=== PATIENT | female | born 1995 | race Caucasian/White ===

== ENCOUNTER 2017-01-21 15:32 | Emergency (ER) | payer OTHER ==
[2017-01-21 15:41] VITALS: O2SAT 97
--- NOTE | 2017-01-21 16:24 | ERPHSYRPT ---
- History of Present Illness Time Seen by Provider: 01/21/17 16:19 Source: patient Exam Limitations: no limitations Patient Subjective Stated Complaint: pt here for a rash to face and arms since saturday getting worse, co itching Triage Nursing Assessment: pt has red rash to face,and arms Physician History: The patient is a 21-year-old female who is 24 weeks complaining that she has a worsening itchy rash on her face and forearms for the last 4 days. She thinks it's poison jose r. She is requested that I call her OB doctor, Dr. Johnson, in [place]. Timing/Duration: day(s) (4), gradual onset, worse Quality: itchy Severity: mild Location: face, extremities (both forearms) Possible Causes: poison jose r Modifying Factors: Improves With: scratching Associated Symptoms: blisters Allergies/Adverse Reactions: No Known Drug Allergies Allergy (Verified 01/21/17 15:42) Home Medications: Vits W-Ca,Fe,FA(<1Mg) [] 1 ea DAILY 01/21/17 [History] Hx Tetanus, Diphtheria Vaccination/Date Given: No Hx Influenza Vaccination/Date Given: Yes Hx Pneumococcal Vaccination/Date Given: No Immunizations Up to Date: Yes - Review of Systems Constitutional: No Fever, No Chills Eyes: No Symptoms Ears, Nose, & Throat: No Symptoms Respiratory: No Cough, No Dyspnea Cardiac: No Chest Pain, No Edema, No Syncope Abdominal/Gastrointestinal: No Abdominal Pain, No Nausea, No Vomiting, No Diarrhea Genitourinary Symptoms: No Dysuria Musculoskeletal: No Back Pain, No Neck Pain Skin: Rash Neurological: No Dizziness, No Focal Weakness, No Sensory Changes Psychological: No Symptoms Endocrine: No Symptoms Hematologic/Lymphatic: No Symptoms Immunological/Allergic: No Symptoms All Other Systems: Reviewed and Negative - Past Medical History Pertinent Past Medical History: No Neurological History: No Pertinent History ENT History: No Pertinent History Cardiac History: No Pertinent History Respiratory History: No Pertinent History Endocrine Medical History: No Pertinent History Musculoskeletal History: No Pertinent History GI Medical History: No Pertinent History History: No Pertinent History Psycho-Social History: No Pertinent History - Past Surgical History Past Surgical History: No Neuro Surgical History: No Pertinent History Cardiac: No Pertinent History Respiratory: No Pertinent History Gastrointestinal: No Pertinent History Genitourinary: No Pertinent History Musculoskeletal: No Pertinent History Female Surgical History: No Pertinent History Other Surgical History: ORAL SURGERY. TONSILS AND ADNOIDS - Social History Smoking Status: Never smoker Exposure to second hand smoke: Yes Drug Use: none Patient Lives Alone: No - Female History Hx Last Menstrual Period: jul 2016 Expected Date of Delivery: 05/11/17 - Nursing Vital Signs Nursing Vital Signs: Initial Vital Signs Temperature 98.3 F 01/21/17 15:36 Pulse Rate 87 01/21/17 15:36 Respiratory Rate 16 01/21/17 15:36 Blood Pressure 118/73 01/21/17 15:36 O2 Sat by Pulse Oximetry 98 01/21/17 15:36 Pain Scale Pain Intensity 0 - Physical Exam General Appearance: no apparent distress, alert Eye Exam: PERRL/EOMI, eyes nml inspection Ears, Nose, Throat Exam: normal ENT inspection, pharynx normal, moist mucous membranes Neck Exam: normal inspection, non-tender, supple, full range of motion Respiratory Exam: normal breath sounds, lungs clear, No respiratory distress Cardiovascular Exam: regular rate/rhythm, normal heart sounds Gastrointestinal/Abdomen Exam: soft, mass, No tenderness Pelvic Exam: not done Rectal Exam: not done Back Exam: normal inspection, normal range of motion, No CVA tenderness, No vertebral tenderness Extremity Exam: normal inspection, normal range of motion Neurologic Exam: alert, oriented x 3, cooperative, normal mood/affect, sensation nml, No motor deficits Skin Exam: rash (Examination of the skin on the face reveals numerous lines of rash some with small vesicles. There is also more of a confluent rash that is red on the forearms.) SpO2 Interpretation: normal SpO2: 97 Oxygen Delivery: Room Air - Progress Progress Note: 01/21/17 16:42 I spoke with her OB doctor, Dr. Johnson, at [place] and explained the possible poison jose r contact dermatitis. He recommended 40 mg of prednisone daily for 5 days. Counseled pt/family regarding: diagnosis - Departure Time of Disposition: 16:43 Departure Disposition: Home Clinical Impression: Contact dermatitis due to poison jose r Condition: Stable Critical Care Time: No Referrals: HAYDEN GRANADOS JR [Primary Care Provider] - Additional Instructions: You have poison jose r contact dermatitis. Take prednisone for 5 days as directed. I spoke with your OB doctor Dr. Johnson about the treatment plan. Follow-up as needed. Prescriptions: Prednisone 10 mg PO DAILY #10 tablet
[2017-01-21 16:58] VITALS: BP 101/55; PULSE 88
== END 2017-01-21 16:58 | disposition home or self-care (01) ==
LOC: ED 15:32
DX: L25.5 Unspecified contact dermatitis due to plants, except food (principal)
CPT/HCPCS: 99282; 99283

== ENCOUNTER 2018-06-18 18:42 | Emergency (ER) | payer MEDICAID ==
[2018-06-18 19:10] VITALS: O2SAT 96
[2018-06-18 19:15] LABS: BASOPHIL % 0.1 % (0.0-0.4); Basophil (Absolute #) 0.01 (0-0.4); Eosinophil % 0.3 % (0.00-5.0); Eosinophil (Absolute #) 0.03 (0-0.5); Granulocytes % 83.9 % (36.0-66.0); Lymphocyte (Absolute #) 1.14 (1.0-4.6); Lymphocytes % 10.1 % (24.0-44.0); Mean Cell Volume 89.7 fl (78-100); Mean Corpuscular Hemoglobin 29.9 pg (26-32); Mean Corpuscular Hgb Concent. 33.3 g/dl (32-36); Mean Platelet Volume 10.2 fl (6-9.5); Monocyte (Absolute #) 0.63 (0.0-1.3); Monocytes % 5.6 % (0.0-12.0); Platelet Count 234 K/mm3 (150-450); Red Blood Count 4.35 M/mm3 (4.1-5.4); Red Cell Distribution Width 13.7 % (11.5-14.0); White Blood Count 11.3 K/mm3 (4.0-10.5)
[2018-06-18 19:23] LABS: Appearance SLIGHTLY CLOUDY (CLEAR); Bilirubin NEGATIVE (NEGATIVE); Blood NEGATIVE Ery/ul (0-5); Epithelial Cells RARE /HPF (FEW); Glucose NEGATIVE (NEGATIVE); Ketones TRACE (NEGATIVE); Leukocyte Esterase SMALL (NEGATIVE); Mucus SLIGHT /HPF (NEGATIVE); Nitrite NEGATIVE (NEGATIVE); Protein,Urine Dip 100 (Negative); RBC 0-2 /HPF (0-2); Specific Gravity 1.024 (1.005-1.025); Urobilinogen NEGATIVE mg/dL (0-1)
[2018-06-18 19:26] LABS: ANION GAP 13.2 MEQ/L (5-15); BLOOD UREA NITROGEN 10 mg/dL (7-17); CHLORIDE 104 mmol/L (98-107); Calcium 9.4 mg/dL (8.4-10.2); Carbon Dioxide 24 mmol/L (22-30); Creatinine 1 0.63 mg/dL (0.52-1.04); Glucose 94 mg/dL (74-106); Potassium 3.9 mmol/L (3.5-5.1); SODIUM 137 mmol/L (137-145)
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
[2018-06-18] MEDS ORDERED: Sodium Chloride 0.9% 1000 ML 1,000 ML IV STA (19:32)
[2018-06-18 19:35] LABS: Amphetamine,Urine NEGATIVE (NEGATIVE); Barbiturate,Urine NEGATIVE (NEGATIVE); Benzodiazepine,Urine NEGATIVE (NEGATIVE); Cocaine,Urine NEGATIVE (NEGATIVE); Methadone,Urine NEGATIVE (NEGATIVE); Opiate,Urine NEGATIVE (NEGATIVE); PCP,Urine NEGATIVE (NEGATIVE); THC,Urine NEGATIVE (NEGATIVE)
[2018-06-18] MEDS ORDERED: Sodium Chloride 0.9% 1000 ML 1,000 ML ONE (19:42)
[2018-06-18 20:13] LABS: HCG, Quantitative (Inhouse) 103480 mIU/ml
[2018-06-18 20:16] LABS: ETHYL ALCOHOL < 10 mg/dL (0-10)
[2018-06-18 20:36] VITALS: BP 118/61; PULSE 88
[2018-06-18] MEDS ORDERED: Macrobid 100MG Capsule PO ONE (20:40)
[2018-06-18] MEDS ORDERED: Macrobid 100MG Capsule ONE (20:42)
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
== END 2018-06-18 20:59 | disposition home or self-care (01) ==
LOC: ED 18:42
DX: O26.891 Other specified pregnancy related conditions, first trimester (principal); O23.41 Unspecified infection of urinary tract in pregnancy, first trimester; S30.1XXA Contusion of abdominal wall, initial encounter; S60.221A Contusion of right hand, initial encounter; Y04.0XXA Assault by unarmed brawl or fight, initial encounter
CPT/HCPCS: 36000; 36415; 76801; 80048; 80307; 81001; 84702; 85025; 96360; 99284; A9270-GY; G0480

== ENCOUNTER 2018-11-13 09:49 | Observation (INO) | payer OTHER ==
[2018-11-13 10:20] LABS: Appearance SLIGHTLY CLOUDY (CLEAR); Bacteria FEW /HPF (NEGATIVE); Bilirubin NEGATIVE (NEGATIVE); Blood SMALL Ery/ul (0-5); Epithelial Cells RARE /HPF (FEW); Glucose NEGATIVE (NEGATIVE); Ketones NEGATIVE (NEGATIVE); Leukocyte Esterase TRACE (NEGATIVE); Mucus SLIGHT /HPF (NEGATIVE); Nitrite NEGATIVE (NEGATIVE); Protein,Urine Dip NEGATIVE (Negative); Specific Gravity 1.025 (1.005-1.025); Urobilinogen NEGATIVE mg/dL (0-1)
[2018-11-13 10:33] LABS: Amphetamine,Urine NEGATIVE (NEGATIVE); Barbiturate,Urine NEGATIVE (NEGATIVE); Benzodiazepine,Urine NEGATIVE (NEGATIVE); Cocaine,Urine NEGATIVE (NEGATIVE); Methadone,Urine NEGATIVE (NEGATIVE); Opiate,Urine NEGATIVE (NEGATIVE); PCP,Urine NEGATIVE (NEGATIVE); THC,Urine NEGATIVE (NEGATIVE)
[2018-11-13] MEDS ORDERED: Sodium Chloride 0.9% 1000 ML 1,000 ML IV STA (10:57)
[2018-11-13] MEDS ORDERED: Lactated Ringers 1,000 ML IV SCH (11:00)
[2018-11-13] MEDS ORDERED: MORPHINE SULFATE 4 MG INJ IV PRN (11:21)
[2018-11-13] MEDS ORDERED: Phenergan 25 MG INJ IV PRN (11:21)
[2018-11-13 11:23] LABS: Hematocrit 31.8 % (35-47); Hemoglobin 10.6 gm/dl (12.0-16.0); Mean Cell Volume 94.1 fl (78-100); Mean Corpuscular Hgb Concent. 33.3 g/dl (32-36); Mean Platelet Volume 9.9 fl (6-9.5); Platelet Count 214 K/mm3 (150-450); Red Blood Count 3.38 M/mm3 (4.1-5.4); Red Cell Distribution Width 12.9 % (11.5-14.0); White Blood Count 10.7 K/mm3 (4.0-10.5)
[2018-11-13 11:25] LABS: Mean Corpuscular Hemoglobin 31.3 pg (26-32)
[2018-11-13 11:40] LABS: ALBUMIN 3.5 g/dL (3.5-5.0); ALKALINE PHOSPHATASE 114 U/L (38-126); ANION GAP 12.8 MEQ/L (5-15); BLOOD UREA NITROGEN 11 mg/dL (7-17); CHLORIDE 108 mmol/L (98-107); Calcium 8.9 mg/dL (8.4-10.2); Carbon Dioxide 21 mmol/L (22-30); Creatinine 1 0.63 mg/dL (0.52-1.04); Glucose 95 mg/dL (74-106); Potassium 3.8 mmol/L (3.5-5.1); SGOT/AST 15 U/L (14-36); SGPT/ALT 11 U/L (0-35); SODIUM 138 mmol/L (137-145); Total Protein 6.7 g/dL (6.3-8.2)
[2018-11-13 11:45] LABS: BAND 1 % (0.0-2.0); Eosinophil 1 % (0.00-3.0); Lymphocytes 18 % (24-44); Neutrophils 80 % (36.0-66.0); Platelet Estimate NORMAL (NORMAL); Total Cells Counted 100; Toxic Granulation 1+
--- NOTE | 2018-11-13 12:17 | XRAY ---
Indication: Right back pain. 30 weeks . Two-dimensional renal sonogram performed. Comparison: None Both kidneys normal in reniform shape. Right kidney measures 12.3 x 5.7 x 5.5 cm and the left measures 11.9 x 4.6 x 4.8 cm. Right kidney demonstrates mild hydronephrosis presumed related to . No solid/cystic renal mass or perinephric fluid. Corticomedullary differentiation preserved. Urinary bladder minimally distended and grossly unremarkable. Normal bilateral ureteral jets. Impression: Mild right-sided hydronephrosis presumed related to . Remaining renal sonogram is negative.
[2018-11-13 18:30] VITALS: BP 109/63; PULSE 88
== END 2018-11-13 18:00 | disposition home or self-care (01) ==
LOC: OB 09:49
PROVIDERS: ADMIT Family Medicine; ATTEND Family Medicine
DX: O99.89 Other specified diseases and conditions complicating pregnancy, childbirth and the puerperium (principal); N13.30 Unspecified hydronephrosis; O21.9 Vomiting of pregnancy, unspecified; E86.0 Dehydration; Z3A.30 30 weeks gestation of pregnancy
CPT/HCPCS: 36415; 76770; 80053; 80307; 81001; 85025; 87086; G0378; J2550

== ENCOUNTER 2018-12-05 07:18 | Emergency (ER) | payer OTHER ==
[2018-12-05 07:35] VITALS: BP 124/78; O2SAT 98
--- NOTE | 2018-12-05 07:48 | ERPHSYRPT ---
- History of Present Illness Time Seen by Provider: 12/05/18 07:35 Source: patient Patient Subjective Stated Complaint: sore throat since yesterday Triage Nursing Assessment: alert and oriented with c/o sorethroat since yesterday. staes she saw green . staets she has occasionally has had a cough. Physician History: PATIENT -2,PARA-1 WHO IS 33 WEEKS GESTATION COMPLAINS OF A SORETHROAT FOR 2 DAYS. DENIES FEVER, CHILLS, DIFFICULTY BREATHING OR SWALLOWING. HAS OCCASIONAL COUGH NONPRODUCTIVE. DENIES DYSPNEA OR DIFFICULTY BREATHING. Timing/Duration: gradual onset Severity: moderate ENT Location: throat Prearrival Treatment: no prearrival treatment Modifying Factors: Improves With: nothing Associated Symptoms: denies symptoms Allergies/Adverse Reactions: No Known Drug Allergies Allergy (Verified 11/13/18 11:46) Home Medications: Vits W-Ca,Fe,FA(<1Mg) [] 1 ea PO DAILY 01/21/17 [History] Hx Tetanus, Diphtheria Vaccination/Date Given: No Hx Influenza Vaccination/Date Given: No Hx Pneumococcal Vaccination/Date Given: No - Review of Systems Constitutional: No Fever, No Chills Eyes: No Symptoms Ears, Nose, & Throat: Throat Pain Respiratory: No Symptoms, No Cough, No Dyspnea Cardiac: No Symptoms, No Chest Pain, No Edema, No Syncope Abdominal/Gastrointestinal: No Symptoms, No Abdominal Pain, No Nausea, No Vomiting, No Diarrhea Genitourinary Symptoms: No Symptoms, No Dysuria Musculoskeletal: No Symptoms, No Back Pain, No Neck Pain Skin: No Rash Neurological: No Dizziness, No Focal Weakness, No Sensory Changes Psychological: No Symptoms Endocrine: No Symptoms All Other Systems: Reviewed and Negative - Past Medical History Pertinent Past Medical History: Yes Neurological History: No Pertinent History ENT History: No Pertinent History Cardiac History: No Pertinent History Respiratory History: No Pertinent History Endocrine Medical History: No Pertinent History Musculoskeletal History: No Pertinent History GI Medical History: No Pertinent History History: No Pertinent History Psycho-Social History: No Pertinent History Other Medical History: 33weeks - Past Surgical History Past Surgical History: Yes Neuro Surgical History: No Pertinent History Cardiac: No Pertinent History Respiratory: No Pertinent History Gastrointestinal: No Pertinent History Genitourinary: No Pertinent History Musculoskeletal: No Pertinent History Female Surgical History: No Pertinent History Other Surgical History: ORAL SURGERY - Social History Smoking Status: Never smoker Exposure to second hand smoke: No Drug Use: none Patient Lives Alone: No - Female History Hx Now: Yes Gestational Age: 33 weeks - Nursing Vital Signs Nursing Vital Signs: Initial Vital Signs Temperature 98.0 F 12/05/18 07:28 Pulse Rate 72 12/05/18 07:28 Respiratory Rate 18 12/05/18 07:28 Blood Pressure 124/78 12/05/18 07:28 O2 Sat by Pulse Oximetry 98 12/05/18 07:28 Pain Scale Pain Intensity 3 - Physical Exam General Appearance: no apparent distress, alert Eye Exam: bilateral eye: normal inspection, PERRL, EOMI Ear Exam: bilateral ear: auricle normal, canal normal, TM normal Nasal Exam: normal inspection Throat Exam: normal, pharynx normal (THERE IS NO HYPERTROPHY, ERYTHEMA OR EXUDATES) Neck Exam: normal inspection, lymphadenopathy (R), lymphadenopathy (L) Cardiovascular/Respiratory Exam: chest non-tender, normal breath sounds, regular rate/rhythm Skin Exam: normal color SpO2: 98 O2 Delivery: Room Air Ordered Tests: Active Orders 24 hr Category Date Time Status CULTURE, THROAT Stat Lab 12/05/18 07:42 Ordered Lab/Rad Data: Laboratory Results 12/05/18 Range/Units 07:46 Group A Strep Antibody NEGATIVE (NEGATIVE) - Progress Progress Note: 12/05/18 08:28 STREP SCREEN NEGATIVE Counseled pt/family regarding: lab results - Departure Departure Disposition: Home Clinical Impression: ACUTE PHARYNGITIS, ACUTE BRONCHITIS Condition: Stable Critical Care Time: No Referrals: SELAM PORTER [Primary Care Provider] - Additional Instructions: TYLENOL EVERY 4 HOURS NEEDED FOR FEVER OR PAIN. ANTIBIOTIC AMOXICILLIN 875MG TWICE DAILY FOR 10 DAYS. CONSULT YOUR PRIMARY CARE PROVIDER FOR FOLLOWUP IN 1 WEEK. RETURN TO EMERGENCY ROOM FOR PERSISTENT FEVER OR PAIN. Prescriptions: Amoxicillin [Amoxil] 875 mg PO BID #20 tablet
[2018-12-05 08:36] VITALS: PULSE 70
== END 2018-12-05 08:35 | disposition home or self-care (01) ==
LOC: ED 07:18
DX: J06.0 Acute laryngopharyngitis (principal); J20.9 Acute bronchitis, unspecified; Z3A.33 33 weeks gestation of pregnancy
CPT/HCPCS: 87070; 87651; 99283

== ENCOUNTER 2019-08-11 11:08 | Emergency (ER) | payer OTHER ==
--- NOTE | 2019-08-11 11:33 | ERPHSYRPT ---
- History of Present Illness Time Seen by Provider: 08/11/19 11:16 Historian: patient Exam Limitations: no limitations Physician History: Patient is here for N/V/D. States she does not feel well overall. No falls or trauma. She feels somewhat dizzy and has abdominal pain. Location: generalized Quality: malaise Radiation: none Severity: moderate Duration: 24-48 hours Timing: gradual Modifying factors/associated signs and symptoms: none tried Allergies/Adverse Reactions: No Known Drug Allergies Allergy (Verified 08/11/19 11:32) Home Medications: No Reportable Medications [No Reported Medications] 08/11/19 [History] Hx Tetanus, Diphtheria Vaccination/Date Given: No Hx Influenza Vaccination/Date Given: No Hx Pneumococcal Vaccination/Date Given: No - Review of Systems Constitutional: No Fever, No Chills Eyes: No Symptoms Ears, Nose, & Throat: No Symptoms Respiratory: No Cough, No Dyspnea Cardiac: No Chest Pain, No Edema, No Syncope Abdominal/Gastrointestinal: Abdominal Pain, Nausea, Vomiting, No Diarrhea Genitourinary Symptoms: No Dysuria Musculoskeletal: No Back Pain, No Neck Pain Skin: No Rash Neurological: Dizziness, No Focal Weakness, No Sensory Changes Psychological: No Symptoms Endocrine: No Symptoms All Other Systems: Reviewed and Negative - Past Medical History Pertinent Past Medical History: Yes Neurological History: No Pertinent History ENT History: No Pertinent History Cardiac History: No Pertinent History Respiratory History: No Pertinent History Endocrine Medical History: No Pertinent History Musculoskeletal History: No Pertinent History GI Medical History: No Pertinent History History: No Pertinent History Psycho-Social History: No Pertinent History Other Medical History: 33weeks - Past Surgical History Past Surgical History: Yes Neuro Surgical History: No Pertinent History Cardiac: No Pertinent History Respiratory: No Pertinent History Gastrointestinal: No Pertinent History Genitourinary: No Pertinent History Musculoskeletal: No Pertinent History Female Surgical History: No Pertinent History Other Surgical History: ORAL SURGERY - Social History Smoking Status: Never smoker Exposure to second hand smoke: No Drug Use: none Patient Lives Alone: No - Nursing Vital Signs Nursing Vital Signs: Initial Vital Signs Temperature 98.1 F 08/11/19 11:21 Pulse Rate 101 H 08/11/19 11:21 Respiratory Rate 16 08/11/19 11:21 Blood Pressure 108/79 08/11/19 11:21 O2 Sat by Pulse Oximetry 99 03/03/20 11:21 Pain Scale Pain Intensity 0 - Physical Exam General Appearance: no apparent distress, alert Eye Exam: PERRL/EOMI, eyes nml inspection Ears, Nose, Throat Exam: normal ENT inspection, pharynx normal, moist mucous membranes Neck Exam: normal inspection, non-tender, supple, full range of motion Respiratory Exam: normal breath sounds, lungs clear, No respiratory distress Cardiovascular Exam: regular rate/rhythm, normal heart sounds Gastrointestinal/Abdomen Exam: soft, No tenderness, No mass Back Exam: normal inspection, normal range of motion, No CVA tenderness, No vertebral tenderness Extremity Exam: normal inspection, normal range of motion, pelvis stable Neurologic Exam: alert, oriented x 3, cooperative, normal mood/affect, nml cerebellar function, sensation nml, No motor deficits Skin Exam: normal color, warm, dry Comments: 08/11/19 11:32 Motor: There is no pronator drift of out-stretched arms. Muscle bulk and tone are normal. Strength is full bilaterally. Reflexes: Reflexes are 2+ and symmetric at the biceps, triceps, knees, and ankles. Plantar responses are flexor. Sensory: Light touch sense are intact in bilateral upper and lower extremities. There is no sign of neglect. Coordination: Rapid alternating movements are intact. There is no dysmetria on [id number] and [id number]. There are no abnormal or extraneous movements. Romberg is absent. Gait/Stance: Posture is normal. Gait is steady with normal steps, base, arm swing, and turning. Heel and toe walking are normal. Tandem gait is normal. Ordered Tests: Active Orders 24 hr Category Date Time Status EKG-ER Only STAT Care 08/11/19 11:26 Active IV Insertion STAT Care 08/11/19 11:26 Active CHEST 2 VIEWS (PA AND LAT) Stat Exams 08/11/19 11:27 Taken CBC W DIFF Stat Lab 08/11/19 11:30 Completed CMP Stat Lab 08/11/19 11:30 Completed CULTURE,URINE Stat Lab 08/11/19 11:34 Received HCG,QUALITATIVE URINE Stat Lab 08/11/19 11:34 Completed LIPASE Stat Lab 08/11/19 11:30 Completed UA W/RFX UR CULTURE Stat Lab 08/11/19 11:34 Completed Medication Summary Discontinued Medications Generic Name Dose Route Start Last Admin Trade Name Freq PRN Reason Stop Dose Admin Hydromorphone HCl 1 mg 08/11/19 11:26 08/11/19 11:50 Hydromorphone 1 Mg/Ml Ampule IV 08/11/19 11:27 1 mg STAT ONE Administration Hydromorphone HCl Confirm 08/11/19 11:39 Hydromorphone 1 Mg/Ml Ampule Administered 08/11/19 11:40 Dose 1 mg .ROUTE .STK-MED ONE Sodium Chloride 1,000 mls @ 999 mls/hr 08/11/19 11:26 08/11/19 11:51 Sodium Chloride 0.9% 1000 Ml IV 08/11/19 12:26 999 mls/hr .Q1H1M STA Administration Sodium Chloride Confirm 08/11/19 11:39 Sodium Chloride 0.9% 1000 Ml Administered 08/11/19 11:40 Dose 1,000 mls @ ud .ROUTE .STK-MED ONE Ondansetron HCl 4 mg 08/11/19 11:26 08/11/19 11:49 Zofran 4 Mg/2 Ml Vial IV 08/11/19 11:27 4 mg STAT ONE Administration Ondansetron HCl Confirm 08/11/19 11:39 Zofran 4 Mg/2 Ml Vial Administered 08/11/19 11:40 Dose 4 mg .ROUTE .STK-MED ONE Lab/Rad Data: Laboratory Result Diagrams 08/11/19 11:30 08/11/19 11:30 Laboratory Results 08/11/19 08/11/19 08/11/19 Range/Units 11:34 11:34 11:30 WBC (4.0-10.5) K/mm3 RBC (4.1-5.4) M/mm3 Hgb (12.0-16.0) gm/dl Hct (35-47) % MCV (78-100) fl MCH (26-32) pg MCHC (32-36) g/dl RDW (11.5-14.0) % Plt Count (150-450) K/mm3 MPV (7.5-11.0) fl Gran % (36.0-66.0) % Eos # (Auto) (0-0.5) Absolute Lymphs (auto) (1.0-4.6) Absolute Monos (auto) (0.0-1.3) Lymphocytes % (24.0-44.0) % Monocytes % (0.0-12.0) % Eosinophils % (0.00-5.0) % Basophils % (0.0-0.4) % Absolute Granulocytes (1.4-6.9) Basophils # (0-0.4) Sodium 143 (137-145) mmol/L Potassium 4.1 (3.5-5.1) mmol/L Chloride 109 H (98-107) mmol/L Carbon Dioxide 24 (22-30) mmol/L Anion Gap 13.7 (5-15) MEQ/L BUN 16 (7-17) mg/dL Creatinine 0.82 (0.52-1.04) mg/dL Estimated GFR > 60.0 ML/MIN Glucose 143 H (74-106) mg/dL Calcium 9.1 (8.4-10.2) mg/dL Total Bilirubin 0.90 (0.2-1.3) mg/dL AST 18 (14-36) U/L ALT 13 (0-35) U/L Alkaline Phosphatase 121 (38-126) U/L Serum Total Protein 7.7 (6.3-8.2) g/dL Albumin 4.6 (3.5-5.0) g/dL Lipase 42 (23-300) U/L Urine Color DARK YELLOW (YELLOW) Urine Appearance SLIGHTLY CLOUDY (CLEAR) Urine pH 5.0 (5-6) Ur Specific [place] 1.035 (1.005-1.025) Urine Protein 30 (Negative) Urine Ketones NEGATIVE (NEGATIVE) Urine Blood MODERATE (0-5) Randy/ul Urine Nitrite NEGATIVE (NEGATIVE) Urine Bilirubin NEGATIVE (NEGATIVE) Urine Urobilinogen NEGATIVE (0-1) mg/dL Ur Leukocyte Esterase NEGATIVE (NEGATIVE) Urine WBC (Auto) 3-5 (0-5) /HPF Urine RBC (Auto) 3-5 (0-2) /HPF U Epithel Cells (Auto) RARE (FEW) /HPF Urine Bacteria (Auto) RARE (NEGATIVE) /HPF Urine Mucus (Auto) MANY (NEGATIVE) /HPF Urine Culture Reflexed YES (NO) Urine Glucose NEGATIVE (NEGATIVE) mg/dL Urine HCG, Qual NEGATIVE (Negative) Slides for Path Review 08/11/19 Range/Units 11:30 WBC 8.7 (4.0-10.5) K/mm3 RBC 4.90 (4.1-5.4) M/mm3 Hgb 14.0 (12.0-16.0) gm/dl Hct 42.9 (35-47) % MCV 87.6 (78-100) fl MCH 28.6 (26-32) pg MCHC 32.6 (32-36) g/dl RDW 14.1 H (11.5-14.0) % Plt Count 256 (150-450) K/mm3 MPV 10.0 (7.5-11.0) fl Gran % 91.8 H (36.0-66.0) % Eos # (Auto) 0.03 (0-0.5) Absolute Lymphs (auto) 0.42 L (1.0-4.6) Absolute Monos (auto) 0.26 (0.0-1.3) Lymphocytes % 4.8 L (24.0-44.0) % Monocytes % 3.0 (0.0-12.0) % Eosinophils % 0.3 (0.00-5.0) % Basophils % 0.1 (0.0-0.4) % Absolute Granulocytes 8.02 H (1.4-6.9) Basophils # 0.01 (0-0.4) Sodium (137-145) mmol/L Potassium (3.5-5.1) mmol/L Chloride (98-107) mmol/L Carbon Dioxide (22-30) mmol/L Anion Gap (5-15) MEQ/L BUN (7-17) mg/dL Creatinine (0.52-1.04) mg/dL Estimated GFR ML/MIN Glucose (74-106) mg/dL Calcium (8.4-10.2) mg/dL Total Bilirubin (0.2-1.3) mg/dL AST (14-36) U/L ALT (0-35) U/L Alkaline Phosphatase (38-126) U/L Serum Total Protein (6.3-8.2) g/dL Albumin (3.5-5.0) g/dL Lipase (23-300) U/L Urine Color (YELLOW) Urine Appearance (CLEAR) Urine pH (5-6) Ur Specific [place] (1.005-1.025) Urine Protein (Negative) Urine Ketones (NEGATIVE) Urine Blood (0-5) Randy/ul Urine Nitrite (NEGATIVE) Urine Bilirubin (NEGATIVE) Urine Urobilinogen (0-1) mg/dL Ur Leukocyte Esterase (NEGATIVE) Urine WBC (Auto) (0-5) /HPF Urine RBC (Auto) (0-2) /HPF U Epithel Cells (Auto) (FEW) /HPF Urine Bacteria (Auto) (NEGATIVE) /HPF Urine Mucus (Auto) (NEGATIVE) /HPF Urine Culture Reflexed (NO) Urine Glucose (NEGATIVE) mg/dL Urine HCG, Qual (Negative) Slides for Path Review YES - Progress Progress: improved Progress Note: 08/11/19 11:33 differential diagnosis includes kidney stone, compression fracture, infection, UTI, triple AAA - basic labs including: CBC, lipase, CMP, UA, EKG - insert IV for fluids, pain meds, nausea control - consider imaging: CT ab/pelvis 08/11/19 12:45 Patient feels improved with medication. Labs and imaging are unremarkable. CXR shows no PNA. Plan of care was discussed with patient and patients family: all questions answered. They are agreeable to be discharged home and both verbal and printed discharge instructions were provided. The patient and patients family agreed to seek outpatient follow up as discussed. They were given strict instructions to return to the emergency department for worsening symptoms or any other emergent concerns. They verbalized understanding. Counseled pt/family regarding: drug and/or alcohol abuse, lab results, diagnosis - Departure Departure Disposition: Home Clinical Impression: Flu-like symptoms Condition: Stable Critical Care Time: No Referrals: SELAM PORTER [Primary Care Provider] - Instructions: Vomiting -- Adult, Nausea -- Adult
[2019-08-11] MEDS ORDERED: Sodium Chloride 0.9% 1000 ML 1,000 ML ONE (11:39)
[2019-08-11] MEDS ORDERED: Hydromorphone 1 mg/ml Ampule ONE (11:39)
[2019-08-11] MEDS ORDERED: Zofran 4 MG/2 ML VIAL ONE (11:39)
[2019-08-11 11:47] LABS: Absolute Neutrophil Ct (ANC) 8.02 (1.4-6.9); BASOPHIL % 0.1 % (0.0-0.4); Basophil (Absolute #) 0.01 (0-0.4); Eosinophil % 0.3 % (0.00-5.0); Eosinophil (Absolute #) 0.03 (0-0.5); Hematocrit 42.9 % (35-47); Lymphocyte (Absolute #) 0.42 (1.0-4.6); Lymphocytes % 4.8 % (24.0-44.0); Mean Cell Volume 87.6 fl (78-100); Mean Corpuscular Hemoglobin 28.6 pg (26-32); Mean Corpuscular Hgb Concent. 32.6 g/dl (32-36); Monocyte (Absolute #) 0.26 (0.0-1.3); Neutrophil % 91.8 % (36.0-66.0); Platelet Count 256 K/mm3 (150-450); Red Cell Distribution Width 14.1 % (11.5-14.0); White Blood Count 8.7 K/mm3 (4.0-10.5)
[2019-08-11] MEDS: Zofran 4 MG/2 ML VIAL IV ONE (11:49)
[2019-08-11] MEDS: Hydromorphone 1 mg/ml Ampule IV ONE (11:50)
[2019-08-11] MEDS: Sodium Chloride 0.9% 1000 ML 1,000 ML IV STA (11:51)
[2019-08-11 11:56] LABS: Appearance SLIGHTLY CLOUDY (CLEAR); Bacteria RARE /HPF (NEGATIVE); Bilirubin NEGATIVE (NEGATIVE); Blood MODERATE Ery/ul (0-5); Epithelial Cells RARE /HPF (FEW); Glucose NEGATIVE (NEGATIVE); Ketones NEGATIVE (NEGATIVE); Leukocyte Esterase NEGATIVE (NEGATIVE); Mucus MANY /HPF (NEGATIVE); Nitrite NEGATIVE (NEGATIVE); Protein,Urine Dip 30 (Negative); Specific Gravity 1.035 (1.005-1.025); Urobilinogen NEGATIVE mg/dL (0-1)
[2019-08-11 12:02] LABS: ALBUMIN 4.6 g/dL (3.5-5.0); ALKALINE PHOSPHATASE 121 U/L (38-126); ANION GAP 13.7 MEQ/L (5-15); BLOOD UREA NITROGEN 16 mg/dL (7-17); CHLORIDE 109 mmol/L (98-107); Calcium 9.1 mg/dL (8.4-10.2); Carbon Dioxide 24 mmol/L (22-30); Creatinine 1 0.82 mg/dL (0.52-1.04); Glucose 143 mg/dL (74-106); LIPASE 42 U/L (23-300); Potassium 4.1 mmol/L (3.5-5.1); SGOT/AST 18 U/L (14-36); SGPT/ALT 13 U/L (0-35); SODIUM 143 mmol/L (137-145); Total Protein 7.7 g/dL (6.3-8.2)
[2019-08-11 12:04] LABS: Slide Review 1 YES
[2019-08-11 12:29] VITALS: PULSE 74; O2SAT 98
[2019-08-11 13:21] VITALS: BP 107/67
--- NOTE | 2019-08-11 13:27 | XRAY ---
Indication: Short of breath, nausea, vomiting, diarrhea, and abdomen pain. Comparison: None PA/lateral chest demonstrates normal heart, lungs, and bony thorax.
== END 2019-08-11 13:42 | disposition home or self-care (01) ==
LOC: ED 11:08
DX: R11.2 Nausea with vomiting, unspecified (principal); R19.7 Diarrhea, unspecified; R10.9 Unspecified abdominal pain
CPT/HCPCS: 36000; 36415; 71046; 80053; 81001; 83690; 84703; 85025; 87086; 93005; 96360; 96374; 96375; 99284; J1170; J2405

== ENCOUNTER 2020-09-14 19:11 | Emergency (ER) | payer OTHER ==
[2020-09-14 19:40] LABS: Appearance SLIGHTLY CLOUDY (CLEAR); Bacteria RARE /HPF (NEGATIVE); Bilirubin NEGATIVE (NEGATIVE); Blood NEGATIVE Ery/ul (0-5); Epithelial Cells RARE /HPF (FEW); Glucose NEGATIVE (NEGATIVE); Ketones NEGATIVE (NEGATIVE); Leukocyte Esterase LARGE (NEGATIVE); Mucus SLIGHT /HPF (NEGATIVE); Nitrite NEGATIVE (NEGATIVE); Protein,Urine Dip NEGATIVE (Negative); Specific Gravity 1.019 (1.005-1.025); Urobilinogen NEGATIVE mg/dL (0-1); WBC >100 /HPF (0-5)
--- NOTE | 2020-09-14 19:51 | ERPHSYRPT ---
- History of Present Illness Time Seen by Provider: 09/14/20 19:25 Source: patient Exam Limitations: no limitations Patient Subjective Stated Complaint: pt c/o difficulty urinating, urinating small amount, mod amt green discharge slightly foul odor, low back pain and abd pain Triage Nursing Assessment: Pt c/o difficulty urinating, urinating in small amounts and frequently, had low back pain and abd pain, mod amt of green discharge vaginally with slightly foul odor. Symptoms x2 weeks, but getting worse. Pt trying to drink lots of water. LBM today and regular with those. Pt has a sexual partner who had STD several years ago and has been having unprotected sex. Physician History: 25 years old female presented in the ER with chief complaint of increased urinary frequency/dysuria/burning and mild pelvic/suprapubic cramping and low back pain for the last 2 weeks. She also noticed thick yellow-green discharge off and on foul-smelling. Does not have any self STDs in the past and is sexually active with a partner for the last 2 months who does have history of STDs in remote past. No fever chills nausea or vomiting reported. Timing/Duration: week(s) (2), intermittent, gradual onset, worse Activites at Onset: rest Quality: burning, cramping Onset Location: pelvic pain, low back pain Severity of Pain-Max: moderate Severity of Pain-Current: mild Prior abdominal problems: none Sexual intercourse history: single partner Modifying Factors: Worsens With: urinating Associated Symptoms: urinary frequency, lower back pain, vaginal discharge, No fever, No diaphoresis, No Allergies/Adverse Reactions: No Known Drug Allergies Allergy (Verified 09/14/20 19:36) Hx Tetanus, Diphtheria Vaccination/Date Given: Yes Hx Influenza Vaccination/Date Given: No Hx Pneumococcal Vaccination/Date Given: No Travel Risk - International Travel Have you traveled outside of the country in past 3 weeks: No - Coronavirus Screening Are you exhibiting any of the following symptoms?: No - Vaccine Status Have you recieved a Covid-19 vaccination: No - Review of Systems Constitutional: No Symptoms Eyes: No Symptoms Respiratory: No Symptoms Cardiac: No Symptoms Abdominal/Gastrointestinal: Abdominal Pain Genitourinary Symptoms: Dysuria, Frequency, Vaginal Discharge Musculoskeletal: No Symptoms Skin: No Symptoms Neurological: No Symptoms Psychological: No Symptoms Endocrine: No Symptoms Hematologic/Lymphatic: No Symptoms - Past Medical History Pertinent Past Medical History: Yes Neurological History: No Pertinent History ENT History: No Pertinent History Cardiac History: No Pertinent History Respiratory History: No Pertinent History Endocrine Medical History: No Pertinent History Musculoskeletal History: No Pertinent History GI Medical History: No Pertinent History History: No Pertinent History Psycho-Social History: No Pertinent History Female Reproductive Disorders: No Pertinent History Other Medical History: 33weeks - Past Surgical History Past Surgical History: Yes Neuro Surgical History: No Pertinent History Cardiac: No Pertinent History Respiratory: No Pertinent History Gastrointestinal: No Pertinent History Genitourinary: No Pertinent History Musculoskeletal: No Pertinent History Female Surgical History: No Pertinent History Other Surgical History: ORAL SURGERY - Social History Smoking Status: Never smoker Exposure to second hand smoke: Yes Drug Use: none Patient Lives Alone: No - Female History Hx Last Menstrual Period: 3 weeks ago Hx Now: No - Nursing Vital Signs Nursing Vital Signs: Initial Vital Signs Temperature 98.4 F 09/14/20 19:24 Pulse Rate 73 09/14/20 19:24 Respiratory Rate 18 09/14/20 19:24 Blood Pressure 116/68 09/14/20 19:24 O2 Sat by Pulse Oximetry 98 09/14/20 19:24 Pain Scale Pain Intensity 4 - Physical Exam General Appearance: no apparent distress Neck Exam: normal inspection, supple, full range of motion Respiratory Exam: normal breath sounds, lungs clear Cardiovascular Exam: regular rate/rhythm, normal heart sounds Gastrointestinal/Abdomen Exam: soft, normal bowel sounds, No tenderness, No distention, No guarding Pelvic Exam: not done Back Exam: normal inspection, normal range of motion, No CVA tenderness Neurologic Exam: alert, oriented x 3, cooperative Skin Exam: normal color SpO2 Interpretation: normal SpO2: 98 O2 Delivery: Room Air Ordered Tests: Active Orders 24 hr Category Date Time Status CULTURE,URINE Stat Lab 09/14/20 19:30 Received HCG,QUALITATIVE URINE Stat Lab 09/14/20 19:33 Completed UA W/RFX UR CULTURE Stat Lab 09/14/20 19:30 Completed Wet Prep Stat Lab 09/14/20 20:00 Completed Medication Summary Discontinued Medications Generic Name Dose Route Start Last Admin Trade Name Freq PRN Reason Stop Dose Admin Ceftriaxone Sodium 1,000 mg 09/14/20 20:17 09/14/20 20:21 Rocephin 1000 Mg Inj IM 09/14/20 20:18 1,000 mg STAT ONE Administration Ceftriaxone Sodium Confirm 09/14/20 20:20 Rocephin 1000 Mg Inj Administered 09/14/20 20:21 Dose 1,000 mg .ROUTE .STK-MED ONE Lidocaine HCl Confirm 09/14/20 20:23 Xylocaine 1% Hcl 20 Ml Mdv Administered 09/14/20 20:24 Dose 1 ml .ROUTE .STK-MED ONE Lab/Rad Data: Laboratory Results 09/14/20 09/14/20 09/14/20 Range/Units 20:00 19:33 19:30 Urine Color YELLOW (YELLOW) Urine Appearance SLIGHTLY CLOUDY (CLEAR) Urine pH 5.0 (5-6) Ur Specific [place] 1.019 (1.005-1.025) Urine Protein NEGATIVE (Negative) Urine Ketones NEGATIVE (NEGATIVE) Urine Blood NEGATIVE (0-5) Randy/ul Urine Nitrite NEGATIVE (NEGATIVE) Urine Bilirubin NEGATIVE (NEGATIVE) Urine Urobilinogen NEGATIVE (0-1) mg/dL Ur Leukocyte Esterase LARGE (NEGATIVE) Urine WBC (Auto) >100 (0-5) /HPF Urine RBC (Auto) 6-10 (0-2) /HPF U Epithel Cells (Auto) RARE (FEW) /HPF Urine Bacteria (Auto) RARE (NEGATIVE) /HPF Urine Mucus (Auto) SLIGHT (NEGATIVE) /HPF Urine Culture Reflexed YES (NO) Urine Glucose NEGATIVE (NEGATIVE) mg/dL Urine HCG, Qual NEGATIVE (Negative) WBC (Wet Prep) Moderate RBC (Wet Prep) Few Epi Cells (Wet Prep) Moderate Bacteria (Wet Prep) Rare Clue Cells (Wet Prep) None Seen Trichomonas (Wet Prep) None Seen Budding Yeast (Wet Prp) None Seen - Progress Progress: improved Air Movement: good Progress Note: 09/14/20 20:52 She is given Rocephin for UTI one-time dose in here along with Zithromax orally as an STD prophylaxis. GC chlamydia is pending. We will continue with Adela[facility] to go home. Discussed signs symptoms of worsening needing return to ER which she seemed understanding. Recommended safe sex practices. Blood Culture(s) Obtained: No Antibiotics given: Yes Counseled pt/family regarding: lab results, diagnosis, need for follow-up - Departure Departure Disposition: Home Clinical Impression: Vaginal discharge UTI (urinary tract infection) Qualifiers: Urinary tract infection type: site unspecified Hematuria presence: without hematuria Qualified Code(s): N39.0 - Urinary tract infection, site not specified Condition: Stable Critical Care Time: No Referrals: SELAM PORTER [Primary Care Provider] - (1-2 days for reevaluation) Instructions: Urinary Tract Infection, Adult (DC) Additional Instructions: Use safe sex practices. Take Tylenol/ibuprofen as needed. Continue with antibiotics. Follow-up with primary care for reevaluation. Follow-up for GC chlamydia results. Return to ER for worsening pain or if develop fever chills/vomiting etc. Prescriptions: Cephalexin Mh 500 mg [Keflex 500 mg] 500 mg PO TID #21 capsule
[2020-09-14] MEDS ORDERED: Rocephin 1000 MG INJ IM ONE (20:17)
[2020-09-14 20:18] LABS: Bacteria Rare; Clue Cells None Seen; Red Blood Cells Few; Trichomonas None Seen; White Blood Cells Moderate; Yeast None Seen
[2020-09-14] MEDS ORDERED: Rocephin 1000 MG INJ ONE (20:20)
[2020-09-14] MEDS ORDERED: XYLOCAINE 1% HCL 20 ML MDV ONE (20:23)
[2020-09-14] MEDS ORDERED: Zithromax 250 MG TABLET PO ONE (20:51)
[2020-09-14] MEDS ORDERED: Zithromax 250 MG TABLET ONE (21:03)
[2020-09-14 21:15] VITALS: BP 108/58; PULSE 68; O2SAT 97
[2020-09-14 21:42] LABS: CHLAMYDIA DNA DETECTED (NEGATIVE); GC DNA Probe NOT DETECTED (NEGATIVE)
== END 2020-09-14 21:18 | disposition home or self-care (01) ==
LOC: ED 19:11
DX: N89.8 Other specified noninflammatory disorders of vagina (principal); N39.0 Urinary tract infection, site not specified
CPT/HCPCS: 81001; 84703; 87086; 87210; 87491; 87591; 96372; 99284; J0696; A9270-GY

== ENCOUNTER 2020-11-05 23:16 | Emergency (ER) | payer OTHER ==
[2020-11-05] MEDS ORDERED: XYLOCAINE 1% HCL 20 ML MDV IJ ONE (23:17)
[2020-11-05 23:32] VITALS: BP 109/74; O2SAT 98
[2020-11-05] MEDS ORDERED: Rocephin 1000 MG INJ IM ONE (23:34)
[2020-11-05] MEDS ORDERED: Rocephin 1000 MG INJ ONE (23:39)
--- NOTE | 2020-11-05 23:39 | ERPHSYRPT ---
- History of Present Illness Time Seen by Provider: 11/05/20 23:38 Source: patient Exam Limitations: no limitations Patient Subjective Stated Complaint: Pt c/o vaginal discharge that is green, vaginal throbbing and vaginal itching. Pt reported hx of chlamydia and was treat ed here but has slept with same partner who was not treated for chlamydia. Triage Nursing Assessment: Patient alert and oriented. Skin color normal for race. Pt c/o vaginal itching, throbbing, burning, and green discharge. Physician History: Pt c/o vaginal discharge that is green, vaginal throbbing and vaginal itching. Pt reported hx of chlamydia and was treated here but has slept with same partner who was not treated for chlamydia.Denies fever, nausea, vomiting Timing/Duration: today Associated Symptoms: denies symptoms Allergies/Adverse Reactions: No Known Drug Allergies Allergy (Verified 11/05/20 23:32) Hx Tetanus, Diphtheria Vaccination/Date Given: Yes Hx Influenza Vaccination/Date Given: No Hx Pneumococcal Vaccination/Date Given: No Immunizations Up to Date: Yes Travel Risk - International Travel Have you traveled outside of the country in past 3 weeks: No - Coronavirus Screening Are you exhibiting any of the following symptoms?: No Close contact with a COVID-19 positive Pt in past 14-21 Days: No - Vaccine Status Have you recieved a Covid-19 vaccination: No - Review of Systems Constitutional: No Fever, No Chills Eyes: No Symptoms Ears, Nose, & Throat: No Symptoms Respiratory: No Cough, No Dyspnea Cardiac: No Chest Pain, No Edema, No Syncope Abdominal/Gastrointestinal: No Abdominal Pain, No Nausea, No Vomiting, No Diarrhea Genitourinary Symptoms: Vaginal Discharge, Vaginal Itching, No Dysuria Musculoskeletal: No Back Pain, No Neck Pain Skin: No Rash Neurological: No Dizziness, No Focal Weakness, No Sensory Changes Psychological: No Symptoms Endocrine: No Symptoms All Other Systems: Reviewed and Negative - Past Medical History Pertinent Past Medical History: Yes Neurological History: No Pertinent History ENT History: No Pertinent History Cardiac History: No Pertinent History Respiratory History: No Pertinent History Endocrine Medical History: No Pertinent History Musculoskeletal History: No Pertinent History GI Medical History: No Pertinent History History: No Pertinent History Psycho-Social History: Depression Female Reproductive Disorders: No Pertinent History Other Medical History: . - Past Surgical History Past Surgical History: Yes Neuro Surgical History: No Pertinent History Cardiac: No Pertinent History Respiratory: No Pertinent History Gastrointestinal: No Pertinent History Genitourinary: No Pertinent History Musculoskeletal: No Pertinent History Female Surgical History: No Pertinent History Other Surgical History: ORAL SURGERY - Social History Smoking Status: Never smoker Exposure to second hand smoke: Yes Drug Use: none Patient Lives Alone: No - Female History Hx Last Menstrual Period: 10/28/20 Hx Now: No - Nursing Vital Signs Nursing Vital Signs: Initial Vital Signs Temperature 97.6 F 11/05/20 23:23 Pulse Rate 67 11/05/20 23:23 Respiratory Rate 18 11/05/20 23:23 Blood Pressure 109/74 11/05/20 23:23 O2 Sat by Pulse Oximetry 98 11/05/20 23:23 Pain Scale Pain Intensity 4 - Physical Exam General Appearance: no apparent distress, alert Eye Exam: PERRL/EOMI, eyes nml inspection Ears, Nose, Throat Exam: normal ENT inspection, TMs normal, pharynx normal, moist mucous membranes Neck Exam: normal inspection, non-tender, supple, full range of motion Respiratory Exam: normal breath sounds, lungs clear, No respiratory distress Cardiovascular Exam: regular rate/rhythm, normal heart sounds, normal peripheral pulses Gastrointestinal/Abdomen Exam: soft, normal bowel sounds, No tenderness, No mass Pelvic Exam: not done Rectal Exam: deferred Back Exam: normal inspection, normal range of motion, No CVA tenderness, No vertebral tenderness Extremity Exam: normal inspection, normal range of motion, pelvis stable Neurologic Exam: alert, oriented x 3, cooperative, normal mood/affect, nml cerebellar function, nml station & gait, sensation nml, No motor deficits Skin Exam: normal color, warm, dry, No rash Lymphatic Exam: No adenopathy SpO2: 98 - Course Nursing assessment & vital signs reviewed: Yes Ordered Tests: Active Orders 24 hr Category Date Time Status CULTURE,URINE Stat Lab 11/05/20 23:43 Received UA W/RFX UR CULTURE Stat Lab 11/05/20 23:43 Completed Medication Summary Discontinued Medications Generic Name Dose Route Start Last Admin Trade Name Freq PRN Reason Stop Dose Admin Ceftriaxone Sodium 1,000 mg 11/05/20 23:34 11/05/20 23:39 Rocephin 1000 Mg Inj IM 11/05/20 23:35 1,000 mg STAT ONE Administration Ceftriaxone Sodium Confirm 11/05/20 23:39 Rocephin 1000 Mg Inj Administered 11/05/20 23:40 Dose 1,000 mg .ROUTE .STK-MED ONE Lab/Rad Data: Laboratory Results 11/05/20 Range/Units 23:43 Urine Color YELLOW (YELLOW) Urine Appearance SLIGHTLY CLOUDY (CLEAR) Urine pH 6.0 (5-6) Ur Specific [place] 1.029 (1.005-1.025) Urine Protein NEGATIVE (Negative) Urine Ketones NEGATIVE (NEGATIVE) Urine Blood NEGATIVE (0-5) Randy/ul Urine Nitrite NEGATIVE (NEGATIVE) Urine Bilirubin NEGATIVE (NEGATIVE) Urine Urobilinogen NEGATIVE (0-1) mg/dL Ur Leukocyte Esterase MODERATE (NEGATIVE) Urine WBC (Auto) 26-50 (0-5) /HPF Urine RBC (Auto) 3-5 (0-2) /HPF U Epithel Cells (Auto) FEW (FEW) /HPF Urine Bacteria (Auto) RARE (NEGATIVE) /HPF Urine Mucus (Auto) MODERATE (NEGATIVE) /HPF Urine Culture Reflexed YES (NO) Urine Glucose NEGATIVE (NEGATIVE) mg/dL - Progress Progress: improved Counseled pt/family regarding: lab results, diagnosis, need for follow-up - Departure Departure Disposition: Home Clinical Impression: Vaginal discharge UTI (urinary tract infection) Qualifiers: Urinary tract infection type: acute pyelonephritis Qualified Code(s): N10 - Acute pyelonephritis Condition: Stable Critical Care Time: No Referrals: SELAM PORTER [Primary Care Provider] - Instructions: STD Prevention, Urinary Tract Infection, Adult (DC) Additional Instructions: Discharge/Care Plan NICOLE FIGUEROA was seen on 11/06/20 in the Emergency Room. The patient was counseled regarding Diagnosis,Lab results, Imaging studies, need for follow up and when to return to the Emergency Room. Prescriptions given: Discharge Note I have spoken with the patient and/or caregivers. I have explained the patient's condition, diagnosis and treatment plan based on the information available to me at this time. I have answered the patient's and/or caregiver's questions and addressed any concerns. The patient and/or caregivers have as good understanding of the patient's diagnosis, condition and treatment plan as can be expected at this point. The vital signs have been stable. The patient's condition is stable and appropriate for discharge from the emergency department. The patient will pursue further outpatient evaluation with the primary care physician or other designated or consulting physician as outlined in the discharge instructions. The patient and/or caregivers are agreeable to this plan of care and follow-up instructions have been explained in detail. The patient and/or caregivers have received these instruction. The patient/and or caregivers are aware that any significant change in condition or worsening of symptoms should prompt an immediate return to this or the closest emergency department or call 911. NICOLE FIGUEROA was seen on 11/06/20 n the Emergency Room. At that time you were treated for an emergent condition, during your visit Laboratory, Radiology and/or other procedures may have been ordered. It is very important that you follow-up with your Primary Care Physician SELAM PORTER within the next 24-48 hours to review your Emergency Room visit and the final results of testing that was ordered. Some test results such as Urine Cultures, Blood Cultures, and other cultures if ordered will not be finalized for 24-48 hours. If you do not have a Primary Care Provider please call the medical records department at [phone] ext [phone] to obtain a copy of your results or you may sign into our patient portal to obtain these results by visiting us @ [email or web address] and completing the following steps: 1. Click on the Patient Portal link 2. Click the Patient Self Enrollment Link to complete the enrollment form and entering your 3. Once the enrollment form is completed you will receive an email with a te mporary ID and password at the email address you provided. 4. Next choose a user name and password. Your user name must be at least 4 characters long and your password must be at least 4 characters long. 5. Choose a security question from the list and provide your answer to the question. If you already have signed into the Health Portal you may access your Health Care Information 31/12 by the following steps: 1. Login to our website @ [email or web address] 2. Enter your original user name and password. FAQS The [facility] Health Portal is an online tool that contains your Lab Results, Radiology Reports, Visit History, Discharge Instructions and Health Summary Lab and Radiology Results will not be available for 72 hours on the portal. The Portal is a secure site, passwords are encryted and URLs are re-written so they cannot be copied and pasted. You and authorized family members are the only ones who can access your Portal. Also there is a timeout feature that protects your information if you leave the Portal page open. If you have technical difficulty please use the Contact Us link on the page this will allow you to submit any questions you have regarding the Portal or you may contact the Medical Record Department at [phone] ext [phone]. Prescriptions: Ciprofloxacin [Cipro 500 MG] 500 mg PO BIDAC #20 tablet
[2020-11-06 00:19] LABS: Appearance SLIGHTLY CLOUDY (CLEAR); Bacteria RARE /HPF (NEGATIVE); Bilirubin NEGATIVE (NEGATIVE); Blood NEGATIVE Ery/ul (0-5); Epithelial Cells FEW /HPF (FEW); Glucose NEGATIVE (NEGATIVE); Ketones NEGATIVE (NEGATIVE); Leukocyte Esterase MODERATE (NEGATIVE); Mucus MODERATE /HPF (NEGATIVE); Nitrite NEGATIVE (NEGATIVE); Protein,Urine Dip NEGATIVE (Negative); Specific Gravity 1.029 (1.005-1.025); Urobilinogen NEGATIVE mg/dL (0-1); WBC 26-50 /HPF (0-5)
[2020-11-06] MEDS ORDERED: Cipro 500 MG PO STA (00:25)
[2020-11-06] MEDS ORDERED: Cipro 500 MG ONE (00:33)
[2020-11-06 00:37] VITALS: PULSE 65
== END 2020-11-06 00:49 | disposition home or self-care (01) ==
LOC: ED 23:16
DX: N89.8 Other specified noninflammatory disorders of vagina (principal)
CPT/HCPCS: 81001; 87086; 96372; 99284; J0696; A9270-GY

== ENCOUNTER 2020-11-18 17:14 | Emergency (ER) | payer OTHER ==
[2020-11-18] MEDS ORDERED: Sodium Chloride 0.9% 1000 ML 1,000 ML IV STA (18:41)
[2020-11-18] MEDS ORDERED: Sodium Chloride 0.9% 1000 ML 1,000 ML ONE (18:45)
--- NOTE | 2020-11-18 18:48 | ERPHSYRPT ---
- History of Present Illness Time Seen by Provider: 11/18/20 17:19 Source: patient Exam Limitations: no limitations Patient Subjective Stated Complaint: pt states she's been out shopping today and was on her way home and began feeling dizzy, nauseous, and just "unwell" Triage Nursing Assessment: pt alert and oriented. pt ambulatory with a steady gait. pt PERRLA. pt states pain to her lower abdomen. pt was here a few days ago and was diagnosed with a UTI and tested for chlamydia and given antibiotic shot. pt is still taking oral abx. skin is pwd. Physician History: 25 years old female presented in the ER with chief complaint of sudden onset of feeling dizzy lightheaded and not feeling well almost 3 hours ago after she got done with shopping earlier at [employer]. Patient reports she has been having scratchiness in her throat, congestion and heaviness in the ears with mild headache and body aches. She is also complaining of some suprapubic discomfort and change in the color of urine making a concern for getting another UTI. She denies vomiting but does have nausea without any upper abdominal pain. No fever or chills reported. Gets have viral illness going on for almost 1 week and she is concerned might have got as well. Timing/Duration: hour(s) (3), gradual onset, improved Cough Quality/Degree: no cough Possible Cause: illness exposure Associated Symptoms: earache, headache, lightheadedness, muscle aches, nasal congestion, nasal drainage, sinus infection, sore throat, No shortness of breath Allergies/Adverse Reactions: No Known Drug Allergies Allergy (Verified 11/18/20 17:37) Hx Tetanus, Diphtheria Vaccination/Date Given: Yes Hx Influenza Vaccination/Date Given: No Hx Pneumococcal Vaccination/Date Given: No Travel Risk - International Travel Have you traveled outside of the country in past 3 weeks: No - Coronavirus Screening Are you exhibiting any of the following symptoms?: No Close contact with a COVID-19 positive Pt in past 14-21 Days: No - Vaccine Status Have you recieved a Covid-19 vaccination: No - Review of Systems Constitutional: Fatigue, Weakness Eyes: No Symptoms Ears, Nose, & Throat: Nose Congestion, Nose Discharge, Sinus Drainage, Throat Pain Respiratory: No Symptoms Cardiac: No Symptoms Abdominal/Gastrointestinal: Nausea Genitourinary Symptoms: Dysuria Musculoskeletal: Myalgias Skin: No Symptoms Neurological: No Symptoms Psychological: No Symptoms Endocrine: No Symptoms Hematologic/Lymphatic: No Symptoms Immunological/Allergic: No Symptoms - Past Medical History Pertinent Past Medical History: Yes Neurological History: No Pertinent History ENT History: No Pertinent History Cardiac History: No Pertinent History Respiratory History: No Pertinent History Endocrine Medical History: No Pertinent History Musculoskeletal History: No Pertinent History GI Medical History: No Pertinent History History: No Pertinent History Psycho-Social History: Depression Female Reproductive Disorders: No Pertinent History Other Medical History: . - Past Surgical History Past Surgical History: Yes Neuro Surgical History: No Pertinent History Cardiac: No Pertinent History Respiratory: No Pertinent History Gastrointestinal: No Pertinent History Genitourinary: No Pertinent History Musculoskeletal: No Pertinent History Female Surgical History: No Pertinent History Other Surgical History: ORAL SURGERY - Social History Smoking Status: Never smoker Exposure to second hand smoke: Yes Drug Use: none Patient Lives Alone: No - Female History Hx Last Menstrual Period: 10-31-20 Hx Now: No - Nursing Vital Signs Nursing Vital Signs: Initial Vital Signs Temperature 98.8 F 11/18/20 17:28 Pulse Rate 99 H 11/18/20 17:28 Respiratory Rate 18 11/18/20 17:28 Blood Pressure 107/72 11/18/20 17:28 O2 Sat by Pulse Oximetry 98 11/18/20 17:28 Pain Scale Pain Intensity 3 - Physical Exam General Appearance: no apparent distress, alert Eye Exam: PERRL/EOMI Ears, Nose, Throat Exam: normal ENT inspection, moist mucous membranes, pharyngeal erythema, other (Postnasal drip) Neck Exam: normal inspection, non-tender, supple, full range of motion Respiratory Exam: normal breath sounds, lungs clear Cardiovascular Exam: regular rate/rhythm, normal heart sounds Gastrointestinal/Abdomen Exam: soft, normal bowel sounds, No tenderness Back Exam: normal inspection, normal range of motion Extremity Exam: normal inspection, normal range of motion Neurologic Exam: alert, oriented x 3, cooperative Skin Exam: normal color SpO2 Interpretation: normal SpO2: 100 O2 Delivery: Room Air - Course EKG Interpreted by Me: RATE ([id number]), Sinus Rhythm, NORMAL AXIS, NORMAL INTERVALS, NORMAL QRS Ordered Tests: Active Orders 24 hr Category Date Time Status IV Insertion STAT Care 11/18/20 18:41 Completed CBC W DIFF Stat Lab 11/18/20 18:49 Completed CMP Stat Lab 11/18/20 18:49 Completed HCG,QUALITATIVE URINE Stat Lab 11/18/20 18:44 Completed INFLUENZA A+B JAIRO Stat Lab 11/18/20 19:00 Completed [place] Screen Stat Lab 11/18/20 18:49 Completed UA W/RFX UR CULTURE Stat Lab 11/18/20 18:44 Completed Medication Summary Discontinued Medications Generic Name Dose Route Start Last Admin Trade Name Mary PRN Reason Stop Dose Admin Azithromycin 1,000 mg 11/18/20 19:51 11/18/20 19:59 Zithromax 250 Mg Tablet PO 11/18/20 19:52 1,000 mg STAT ONE Administration Azithromycin Confirm 11/18/20 19:54 Zithromax 250 Mg Tablet Administered 11/18/20 19:55 Dose 1,000 mg .ROUTE .STK-MED ONE Sodium Chloride 1,000 mls @ 999 mls/hr 11/18/20 18:41 11/18/20 19:50 Sodium Chloride 0.9% 1000 Ml IV 11/18/20 19:41 Infused .Q1H1M STA Infusion Sodium Chloride Confirm 11/18/20 18:45 Sodium Chloride 0.9% 1000 Ml Administered 11/18/20 18:46 Dose 1,000 mls @ ud .ROUTE .STK-MED ONE Trimethoprim/Sulfamethoxazole 1 tab 11/18/20 19:18 11/18/20 19:24 Bactrim Ds Tablet PO 11/18/20 19:19 1 tab STAT STA Administration Trimethoprim/Sulfamethoxazole Confirm 11/18/20 19:23 Bactrim Ds Tablet Administered 11/18/20 19:24 Dose 1 tab PO .STK-MED ONE Lab/Rad Data: Laboratory Result Diagrams 11/18/20 18:49 11/18/20 18:49 Laboratory Results 11/18/20 11/18/20 11/18/20 Range/Units 19:00 19:00 18:49 WBC (4.0-10.5) K/mm3 RBC (4.1-5.4) M/mm3 Hgb (12.0-16.0) gm/dl Hct (35-47) % MCV (78-100) fl MCH (26-32) pg MCHC (32-36) g/dl RDW (11.5-14.0) % Plt Count (150-450) K/mm3 MPV (7.5-11.0) fl Gran % (36.0-66.0) % Eos # (Auto) (0-0.5) Absolute Lymphs (auto) (1.0-4.6) Absolute Monos (auto) (0.0-1.3) Lymphocytes % (24.0-44.0) % Monocytes % (0.0-12.0) % Eosinophils % (0.00-5.0) % Basophils % (0.0-0.4) % Absolute Granulocytes (1.4-6.9) Basophils # (0-0.4) Sodium (137-145) mmol/L Potassium (3.5-5.1) mmol/L Chloride (98-107) mmol/L Carbon Dioxide (22-30) mmol/L Anion Gap (5-15) MEQ/L BUN (7-17) mg/dL Creatinine (0.52-1.04) mg/dL Estimated GFR ML/MIN Glucose (74-106) mg/dL Calcium (8.4-10.2) mg/dL Total Bilirubin (0.2-1.3) mg/dL AST (14-36) U/L ALT (0-35) U/L Alkaline Phosphatase (38-126) U/L Serum Total Protein (6.3-8.2) g/dL Albumin (3.5-5.0) g/dL Urine Color (YELLOW) Urine Appearance (CLEAR) Urine pH (5-6) Ur Specific [place] (1.005-1.025) Urine Protein (Negative) Urine Ketones (NEGATIVE) Urine Blood (0-5) Randy/ul Urine Nitrite (NEGATIVE) Urine Bilirubin (NEGATIVE) Urine Urobilinogen (0-1) mg/dL Ur Leukocyte Esterase (NEGATIVE) Urine WBC (Auto) (0-5) /HPF Urine RBC (Auto) (0-2) /HPF U Epithel Cells (Auto) (FEW) /HPF Urine Bacteria (Auto) (NEGATIVE) /HPF Urine Mucus (Auto) (NEGATIVE) /HPF Urine Culture Reflexed (NO) Urine Glucose (NEGATIVE) mg/dL Urine HCG, Qual (Negative) Monoscreen NEGATIVE (Negative) Influenza Type A Ag NEGATIVE (NEGATIVE) Influenza Type B Ag NEGATIVE (NEGATIVE) Group A Strep Antibody NOT DETECTED (NEGATIVE) 11/18/20 11/18/20 11/18/20 Range/Units 18:49 18:49 18:44 WBC 5.3 (4.0-10.5) K/mm3 RBC 4.39 (4.1-5.4) M/mm3 Hgb 12.9 (12.0-16.0) gm/dl Hct 40.0 (35-47) % MCV 91.1 (78-100) fl MCH 29.4 (26-32) pg MCHC 32.3 (32-36) g/dl RDW 13.0 (11.5-14.0) % Plt Count 237 (150-450) K/mm3 MPV 10.3 (7.5-11.0) fl Gran % 81.3 H (36.0-66.0) % Eos # (Auto) 0.05 (0-0.5) Absolute Lymphs (auto) 0.63 L (1.0-4.6) Absolute Monos (auto) 0.29 (0.0-1.3) Lymphocytes % 12.0 L (24.0-44.0) % Monocytes % 5.5 (0.0-12.0) % Eosinophils % 1.0 (0.00-5.0) % Basophils % 0.2 (0.0-0.4) % Absolute Granulocytes 4.27 (1.4-6.9) Basophils # 0.01 (0-0.4) Sodium 137 (137-145) mmol/L Potassium 4.1 (3.5-5.1) mmol/L Chloride 104 (98-107) mmol/L Carbon Dioxide 26 (22-30) mmol/L Anion Gap 11.3 (5-15) MEQ/L BUN 13 (7-17) mg/dL Creatinine 0.78 (0.52-1.04) mg/dL Estimated GFR > 60.0 ML/MIN Glucose 90 (74-106) mg/dL Calcium 9.0 (8.4-10.2) mg/dL Total Bilirubin 0.30 (0.2-1.3) mg/dL AST 19 (14-36) U/L ALT 11 (0-35) U/L Alkaline Phosphatase 80 (38-126) U/L Serum Total Protein 6.7 (6.3-8.2) g/dL Albumin 4.0 (3.5-5.0) g/dL Urine Color (YELLOW) Urine Appearance (CLEAR) Urine pH (5-6) Ur Specific [place] (1.005-1.025) Urine Protein (Negative) Urine Ketones (NEGATIVE) Urine Blood (0-5) Randy/ul Urine Nitrite (NEGATIVE) Urine Bilirubin (NEGATIVE) Urine Urobilinogen (0-1) mg/dL Ur Leukocyte Esterase (NEGATIVE) Urine WBC (Auto) (0-5) /HPF Urine RBC (Auto) (0-2) /HPF U Epithel Cells (Auto) (FEW) /HPF Urine Bacteria (Auto) (NEGATIVE) /HPF Urine Mucus (Auto) (NEGATIVE) /HPF Urine Culture Reflexed (NO) Urine Glucose (NEGATIVE) mg/dL Urine HCG, Qual NEGATIVE (Negative) Monoscreen (Negative) Influenza Type A Ag (NEGATIVE) Influenza Type B Ag (NEGATIVE) Group A Strep Antibody (NEGATIVE) 11/18/20 Range/Units 18:44 WBC (4.0-10.5) K/mm3 RBC (4.1-5.4) M/mm3 Hgb (12.0-16.0) gm/dl Hct (35-47) % MCV (78-100) fl MCH (26-32) pg MCHC (32-36) g/dl RDW (11.5-14.0) % Plt Count (150-450) K/mm3 MPV (7.5-11.0) fl Gran % (36.0-66.0) % Eos # (Auto) (0-0.5) Absolute Lymphs (auto) (1.0-4.6) Absolute Monos (auto) (0.0-1.3) Lymphocytes % (24.0-44.0) % Monocytes % (0.0-12.0) % Eosinophils % (0.00-5.0) % Basophils % (0.0-0.4) % Absolute Granulocytes (1.4-6.9) Basophils # (0-0.4) Sodium (137-145) mmol/L Potassium (3.5-5.1) mmol/L Chloride (98-107) mmol/L Carbon Dioxide (22-30) mmol/L Anion Gap (5-15) MEQ/L BUN (7-17) mg/dL Creatinine (0.52-1.04) mg/dL Estimated GFR ML/MIN Glucose (74-106) mg/dL Calcium (8.4-10.2) mg/dL Total Bilirubin (0.2-1.3) mg/dL AST (14-36) U/L ALT (0-35) U/L Alkaline Phosphatase (38-126) U/L Serum Total Protein (6.3-8.2) g/dL Albumin (3.5-5.0) g/dL Urine Color YELLOW (YELLOW) Urine Appearance SLIGHTLY CLOUDY (CLEAR) Urine pH 7.0 (5-6) Ur Specific [place] 1.026 (1.005-1.025) Urine Protein NEGATIVE (Negative) Urine Ketones NEGATIVE (NEGATIVE) Urine Blood NEGATIVE (0-5) Randy/ul Urine Nitrite NEGATIVE (NEGATIVE) Urine Bilirubin NEGATIVE (NEGATIVE) Urine Urobilinogen NEGATIVE (0-1) mg/dL Ur Leukocyte Esterase MODERATE (NEGATIVE) Urine WBC (Auto) 3-5 (0-5) /HPF Urine RBC (Auto) NONE (0-2) /HPF U Epithel Cells (Auto) RARE (FEW) /HPF Urine Bacteria (Auto) NONE (NEGATIVE) /HPF Urine Mucus (Auto) SLIGHT (NEGATIVE) /HPF Urine Culture Reflexed NO (NO) Urine Glucose NEGATIVE (NEGATIVE) mg/dL Urine HCG, Qual (Negative) Monoscreen (Negative) Influenza Type A Ag (NEGATIVE) Influenza Type B Ag (NEGATIVE) Group A Strep Antibody (NEGATIVE) - Progress Progress: improved Air Movement: good Progress Note: 11/18/20 19:52 She is given fluid bolus, reevaluation feeling better. Baseline work-up is obtained including strep flu mono which is negative. I believe she has some viral etiology symptoms, recommended supportive care. Later on patient reported that she does have some yellowish-green vaginal discharge which was there when she was diagnosed with chlamydia as her partner did not get treatment and gave it back to her. She is given Zithromax in here and will recheck her for GC chlamydia again. She does have some element of UTI and started on Bactrim. Safe sex counseling done. Outpatient follow-up recommended Blood Culture(s) Obtained: No Antibiotics given: Yes Counseled pt/family regarding: lab results, diagnosis, need for follow-up - Departure Departure Disposition: Home Clinical Impression: Viral syndrome, Vaginal discharge UTI (urinary tract infection) Qualifiers: Urinary tract infection type: site unspecified Hematuria presence: without hematuria Qualified Code(s): N39.0 - Urinary tract infection, site not specified Condition: Stable Critical Care Time: No Referrals: SELAM PORTER [Primary Care Provider] - Follow Up with PCP/3 days Instructions: Urinary Tract Infections in Adults, Chlamydia and Gonorrhea, Phyllisa caitlynia (DC) Additional Instructions: Drink plenty of fluids. Take Tylenol as needed for body aches. Use barrier method for contraception. Get your partner treated. Abstinence from sex until your symptoms are resolved. Follow-up with primary care for reevaluation. Return to ER for worsening. Prescriptions: Smz/Tmp Ds Tablet [Bactrim Ds Tablet] 1 udtab PO BID #14 tablet
[2020-11-18 18:54] LABS: Absolute Neutrophil Ct (ANC) 4.27 (1.4-6.9); BASOPHIL % 0.2 % (0.0-0.4); Basophil (Absolute #) 0.01 (0-0.4); Eosinophil (Absolute #) 0.05 (0-0.5); Hemoglobin 12.9 gm/dl (12.0-16.0); Lymphocyte (Absolute #) 0.63 (1.0-4.6); Mean Cell Volume 91.1 fl (78-100); Mean Corpuscular Hemoglobin 29.4 pg (26-32); Mean Corpuscular Hgb Concent. 32.3 g/dl (32-36); Mean Platelet Volume 10.3 fl (7.5-11.0); Monocyte (Absolute #) 0.29 (0.0-1.3); Monocytes % 5.5 % (0.0-12.0); Neutrophil % 81.3 % (36.0-66.0); Platelet Count 237 K/mm3 (150-450); Red Blood Count 4.39 M/mm3 (4.1-5.4); White Blood Count 5.3 K/mm3 (4.0-10.5)
[2020-11-18 19:01] LABS: ALKALINE PHOSPHATASE 80 U/L (38-126); ANION GAP 11.3 MEQ/L (5-15); BLOOD UREA NITROGEN 13 mg/dL (7-17); CHLORIDE 104 mmol/L (98-107); Carbon Dioxide 26 mmol/L (22-30); Creatinine 1 0.78 mg/dL (0.52-1.04); EST GLOMERULAR FILTRATION RATE > 60.0 ML/MIN; Glucose 90 mg/dL (74-106); Potassium 4.1 mmol/L (3.5-5.1); SGOT/AST 19 U/L (14-36); SGPT/ALT 11 U/L (0-35); SODIUM 137 mmol/L (137-145); Total Protein 6.7 g/dL (6.3-8.2)
[2020-11-18 19:09] LABS: Appearance SLIGHTLY CLOUDY (CLEAR); Bilirubin NEGATIVE (NEGATIVE); Blood NEGATIVE Ery/ul (0-5); Epithelial Cells RARE /HPF (FEW); Glucose NEGATIVE (NEGATIVE); Ketones NEGATIVE (NEGATIVE); Leukocyte Esterase MODERATE (NEGATIVE); Mucus SLIGHT /HPF (NEGATIVE); Nitrite NEGATIVE (NEGATIVE); Protein,Urine Dip NEGATIVE (Negative); Specific Gravity 1.026 (1.005-1.025); Urobilinogen NEGATIVE mg/dL (0-1)
[2020-11-18] MEDS ORDERED: BACTRIM DS TABLET PO STA (19:18)
[2020-11-18] MEDS ORDERED: BACTRIM DS TABLET PO ONE (19:23)
[2020-11-18 19:45] LABS: INFLUENZA A NEGATIVE (NEGATIVE); INFLUENZA B NEGATIVE (NEGATIVE)
[2020-11-18] MEDS ORDERED: Zithromax 250 MG TABLET PO ONE (19:51)
[2020-11-18] MEDS ORDERED: Zithromax 250 MG TABLET ONE (19:54)
[2020-11-18 19:57] VITALS: O2SAT 100
[2020-11-18 20:09] VITALS: BP 105/78; PULSE 70
[2020-11-18 21:17] LABS: CHLAMYDIA DNA DETECTED (NEGATIVE); GC DNA Probe NOT DETECTED (NEGATIVE)
== END 2020-11-18 20:09 | disposition home or self-care (01) ==
LOC: ED 17:14
DX: N39.0 Urinary tract infection, site not specified (principal)
CPT/HCPCS: 36000; 36415; 80053; 81001; 84703; 85025; 86308; 87400; 87491; 87591; 87651; 96360; 99284; A9270-GY

== ENCOUNTER 2020-12-14 19:45 | Emergency (ER) | payer OTHER ==
[2020-12-14 23:45] LABS: Appearance SLIGHTLY CLOUDY (CLEAR); Bilirubin NEGATIVE (NEGATIVE); Blood NEGATIVE Ery/ul (0-5); Epithelial Cells RARE /HPF (FEW); Glucose NEGATIVE (NEGATIVE); Ketones NEGATIVE (NEGATIVE); Leukocyte Esterase LARGE (NEGATIVE); Mucus SLIGHT /HPF (NEGATIVE); Nitrite NEGATIVE (NEGATIVE); Protein,Urine Dip NEGATIVE (Negative); Specific Gravity 1.026 (1.005-1.025); Urobilinogen NEGATIVE mg/dL (0-1); WBC 26-50 /HPF (0-5)
--- NOTE | 2020-12-15 00:01 | ERPHSYRPT ---
- History of Present Illness Time Seen by Provider: 12/14/20 20:30 Source: patient Exam Limitations: no limitations Patient Subjective Stated Complaint: The patient states that she woke up with a sore throat yesterday 12/15/20 with a sore throat, but this morning woke up and could hardly swallow and had puss pockets in the back of her throat. Triage Nursing Assessment: The patient is alert and oriented, ambulatory, complaining of a sore throat. The patient's throat is red with white patches. The patient is concerned that she could be and was concerned about taking a medicine that could harm the baby. The patient also states that she is unable to return to work unless she is medically cleared. Physician History: Patient is a 25-year-old female presents to our ED for evaluation of a sore throat. Patient states she has pain when she swallows. She is observed pus at bilateral tonsils. Patient believes she may need antibiotics. Patient also requesting a test as she wants to be sure she is not before receiving antibiotics. No fever. No nausea or vomiting. No headache. No neck pain. No photophobia. No nuchal rigidity. No chest pain. Symptoms are mild to moderate in intensity. Swallowing reproduces symptoms. Patient able to tolerate oral secretions well no trismus. Patient otherwise healthy. She voices no other complaints concerns at this time. Timing/Duration: yesterday Severity: moderate Modifying Factors: Improves With: nothing Associated Symptoms: denies symptoms Allergies/Adverse Reactions: No Known Drug Allergies Allergy (Verified 11/18/20 17:37) Hx Tetanus, Diphtheria Vaccination/Date Given: Yes Hx Influenza Vaccination/Date Given: Yes (fall 2019) Hx Pneumococcal Vaccination/Date Given: No Immunizations Up to Date: Yes Travel Risk - International Travel Have you traveled outside of the country in past 3 weeks: No - Coronavirus Screening Are you exhibiting any of the following symptoms?: No Close contact with a COVID-19 positive Pt in past 14-21 Days: No - Vaccine Status Have you recieved a Covid-19 vaccination: No - Review of Systems Constitutional: No Symptoms, No Fever, No Chills Eyes: No Symptoms Ears, Nose, & Throat: No Symptoms Respiratory: No Symptoms, No Cough, No Dyspnea Cardiac: No Symptoms, No Chest Pain, No Edema, No Syncope Abdominal/Gastrointestinal: No Symptoms, No Abdominal Pain, No Nausea, No Vomiting, No Diarrhea Genitourinary Symptoms: No Symptoms, No Dysuria Musculoskeletal: No Symptoms, No Back Pain, No Neck Pain Skin: No Symptoms, No Rash Neurological: No Symptoms, No Dizziness, No Focal Weakness, No Sensory Changes Psychological: No Symptoms Endocrine: No Symptoms Hematologic/Lymphatic: No Symptoms Immunological/Allergic: No Symptoms All Other Systems: Reviewed and Negative - Past Medical History Pertinent Past Medical History: Yes Neurological History: No Pertinent History ENT History: No Pertinent History Cardiac History: No Pertinent History Respiratory History: No Pertinent History Endocrine Medical History: No Pertinent History Musculoskeletal History: No Pertinent History GI Medical History: No Pertinent History History: No Pertinent History Psycho-Social History: Depression Female Reproductive Disorders: No Pertinent History Other Medical History: . - Past Surgical History Past Surgical History: Yes Neuro Surgical History: No Pertinent History Cardiac: No Pertinent History Respiratory: No Pertinent History Gastrointestinal: No Pertinent History Genitourinary: No Pertinent History Musculoskeletal: No Pertinent History Female Surgical History: No Pertinent History Other Surgical History: ORAL SURGERY - Social History Smoking Status: Never smoker Exposure to second hand smoke: Yes Drug Use: none Patient Lives Alone: No - Female History Hx Last Menstrual Period: 11/22/20 Hx Now: (possible) - Nursing Vital Signs Nursing Vital Signs: Initial Vital Signs Temperature 99.5 F 12/14/20 20:15 Pulse Rate 91 H 12/14/20 20:15 Respiratory Rate 16 12/14/20 20:15 Blood Pressure 124/67 12/14/20 20:15 O2 Sat by Pulse Oximetry 97 12/14/20 20:15 Pain Scale Pain Intensity 0 - Physical Exam General Appearance: no apparent distress, alert Eye Exam: PERRL/EOMI, eyes nml inspection Ears, Nose, Throat Exam: normal ENT inspection, TMs normal, pharynx normal, moist mucous membranes, other (Bilateral tonsillar exudate. Uvula midline. 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 Mildly erythematous oropharynx. No sublingual masses.) Neck Exam: normal inspection, non-tender, supple, full range of motion, other (Anterior cervical lymphadenopathy.) Respiratory Exam: normal breath sounds, lungs clear, No respiratory distress Cardiovascular Exam: regular rate/rhythm, normal heart sounds, normal peripheral pulses Gastrointestinal/Abdomen Exam: soft, normal bowel sounds, No tenderness, No mass Back Exam: normal inspection, normal range of motion, No CVA tenderness, No vertebral tenderness Extremity Exam: normal inspection, normal range of motion, pelvis stable Neurologic Exam: alert, oriented x 3, cooperative, normal mood/affect, nml cerebellar function, nml station & gait, sensation nml, No motor deficits Skin Exam: normal color, warm, dry, No rash Lymphatic Exam: No adenopathy SpO2: 97 Ordered Tests: Active Orders 24 hr Category Date Time Status HCG,QUALITATIVE URINE Stat Lab 12/14/20 23:11 Completed UA W/RFX UR CULTURE Stat Lab 12/14/20 23:11 Completed Medication Summary Discontinued Medications Generic Name Dose Route Start Last Admin Trade Name Freq PRN Reason Stop Dose Admin Amoxicillin/Clavulanate Potassium 875 mg 12/15/20 00:08 Augmentin 875-125 Tablet PO 12/15/20 00:09 ONCE STA Lab/Rad Data: Laboratory Results 12/14/20 12/14/20 12/14/20 Range/Units 23:25 23:11 23:11 Urine Color YELLOW (YELLOW) Urine Appearance SLIGHTLY CLOUDY (CLEAR) Urine pH 5.0 (5-6) Ur Specific [place] 1.026 (1.005-1.025) Urine Protein NEGATIVE (Negative) Urine Ketones NEGATIVE (NEGATIVE) Urine Blood NEGATIVE (0-5) Randy/ul Urine Nitrite NEGATIVE (NEGATIVE) Urine Bilirubin NEGATIVE (NEGATIVE) Urine Urobilinogen NEGATIVE (0-1) mg/dL Ur Leukocyte Esterase LARGE (NEGATIVE) Urine WBC (Auto) 26-50 (0-5) /HPF Urine RBC (Auto) NONE (0-2) /HPF U Epithel Cells (Auto) RARE (FEW) /HPF Urine Bacteria (Auto) NONE (NEGATIVE) /HPF Urine Mucus (Auto) SLIGHT (NEGATIVE) /HPF Urine Culture Reflexed NO (NO) Urine Glucose NEGATIVE (NEGATIVE) mg/dL Urine HCG, Qual NEGATIVE (Negative) Group A Strep Antibody NOT DETECTED (NEGATIVE) - Departure Departure Disposition: Home Clinical Impression: UTI (urinary tract infection), Pharyngitis, Tonsillitis Condition: Stable Critical Care Time: No Referrals: SELAM PORTER [Primary Care Provider] - Additional Instructions: Discharge/Care Plan NICOLE FIGUEROA was seen on 12/15/20 in the Emergency Room. The patient was counseled regarding Diagnosis,Lab results, Imaging studies, need for follow up and when to return to the Emergency Room. Prescriptions given: Discharge Note I have spoken with the patient and/or caregivers. I have explained the patient's condition, diagnosis and treatment plan based on the information available to me at this time. I have answered the patient's and/or caregiver's questions and addressed any concerns. The patient and/or caregivers have as good understanding of the patient's diagnosis, condition and treatment plan as can be expected at this point. The vital signs have been stable. The patient's condition is stable and appropriate for discharge from the emergency department. The patient will pursue further outpatient evaluation with the primary care physician or other designated or consulting physician as outlined in the discharge instructions. The patient and/or caregivers are agreeable to this plan of care and follow-up instructions have been explained in detail. The patient and/or caregivers have received these instruction. The patient/and or caregivers are aware that any significant change in condition or worsening of symptoms should prompt an immediate return to this or the closest emergency department or call 911. Prescriptions: Amox Tr/Potass Clav. 875 mg [Augmentin 875-125 Tablet] 875 mg PO BID 7 Days #14 tablet
[2020-12-15] MEDS ORDERED: Augmentin 875-125 Tablet PO STA (00:08)
[2020-12-15] MEDS ORDERED: Augmentin 875-125 Tablet ONE (00:28)
[2020-12-15 00:38] VITALS: BP 117/58; PULSE 82; O2SAT 99
== END 2020-12-15 00:36 | disposition home or self-care (01) ==
LOC: ED 19:45
DX: N39.0 Urinary tract infection, site not specified (principal); J02.9 Acute pharyngitis, unspecified; J03.90 Acute tonsillitis, unspecified
CPT/HCPCS: 81001; 84703; 87651; 99283; A9270-GY

== ENCOUNTER 2021-05-04 14:40 | Emergency (ER) | payer OTHER ==
--- NOTE | 2021-05-04 15:28 | ERPHSYRPT ---
- History of Present Illness Time Seen by Provider: 05/04/21 14:52 Source: patient Exam Limitations: no limitations Patient Subjective Stated Complaint: Pt states that her throat began hurting today and that she has some puss pockets in it Triage Nursing Assessment: Pt brought self to the ER, vitals wnl, rates pain 3/10, doesn't apper to be in any distress, skin n/w/d, no difficulties with breathing, throat red but no puscules seen Physician History: 25 years old female presented in the ER with chief complaint of sore throat gradually worsening since morning and noticed some bumps in the back of throat. Reports scratchiness and mild pain with swallowing but denies any difficulty breathing or cough. Denies any sick contact. Timing/Duration: abrupt onset, this morning Severity: moderate ENT Location: throat Prearrival Treatment: no prearrival treatment Associated Symptoms: sore throat Allergies/Adverse Reactions: No Known Drug Allergies Allergy (Verified 05/04/21 14:51) Home Medications: Liraglutide [Victoza 2-Hearclio] 0.6 ml SQ DAILY 05/04/21 [History] Hx Tetanus, Diphtheria Vaccination/Date Given: Yes Hx Influenza Vaccination/Date Given: Yes (fall 2019) Hx Pneumococcal Vaccination/Date Given: No Travel Risk - International Travel Have you traveled outside of the country in past 3 weeks: No - Coronavirus Screening Are you exhibiting any of the following symptoms?: No Close contact with a COVID-19 positive Pt in past 14-21 Days: No - Vaccine Status Have you recieved a Covid-19 vaccination: No - Review of Systems Constitutional: No Symptoms Eyes: No Symptoms Ears, Nose, & Throat: Mouth Swelling, Throat Swelling Respiratory: No Symptoms Cardiac: No Symptoms Abdominal/Gastrointestinal: No Symptoms Musculoskeletal: No Symptoms Skin: No Symptoms Neurological: No Symptoms Endocrine: No Symptoms Hematologic/Lymphatic: No Symptoms Immunological/Allergic: No Symptoms - Past Medical History Pertinent Past Medical History: Yes Neurological History: No Pertinent History ENT History: No Pertinent History Cardiac History: No Pertinent History Respiratory History: No Pertinent History Endocrine Medical History: No Pertinent History Musculoskeletal History: No Pertinent History GI Medical History: No Pertinent History History: No Pertinent History Psycho-Social History: Depression Female Reproductive Disorders: No Pertinent History Other Medical History: . - Past Surgical History Past Surgical History: Yes Neuro Surgical History: No Pertinent History Cardiac: No Pertinent History Respiratory: No Pertinent History Gastrointestinal: No Pertinent History Genitourinary: No Pertinent History Musculoskeletal: No Pertinent History Female Surgical History: No Pertinent History Other Surgical History: ORAL SURGERY - Social History Smoking Status: Never smoker Exposure to second hand smoke: No Drug Use: none Patient Lives Alone: No - Female History Hx Now: No - Nursing Vital Signs Nursing Vital Signs: Initial Vital Signs Temperature 97.0 F 05/04/21 14:45 Pulse Rate 71 05/04/21 14:45 Blood Pressure 101/62 05/04/21 14:45 O2 Sat by Pulse Oximetry 99 05/04/21 14:45 Pain Scale Pain Intensity 3 - Physical Exam General Appearance: no apparent distress, alert Eye Exam: bilateral eye: normal inspection, PERRL, EOMI Ear Exam: bilateral ear: auricle normal, canal normal, TM normal Nasal Exam: normal inspection Throat Exam: moist mucus membranes, pharynx swelling, pharynx tenderness Neck Exam: normal inspection, non-tender, full range of motion Cardiovascular/Respiratory Exam: normal breath sounds, regular rate/rhythm Neurologic Exam: alert, oriented x 3, cooperative, entomology teacher II-XII nml as tested, normal mood/affect Skin Exam: normal color SpO2 Interpretation: normal SpO2: 99 O2 Delivery: Room Air Lab/Rad Data: Laboratory Results 05/04/21 Range/Units 15:10 Group A Strep Antibody NOT DETECTED (NEGATIVE) - Progress Progress: unchanged Progress Note: 05/04/21 16:03 Rapid strep is negative. I believe it is viral pharyngitis, recommended supportive care and outpatient follow-up. Counseled pt/family regarding: lab results, diagnosis, need for follow-up - Departure Departure Disposition: Home Clinical Impression: Pharyngitis Qualifiers: Pharyngitis/tonsillitis etiology: unspecified etiology Qualified Code(s): J02.9 - Acute pharyngitis, unspecified Condition: Stable Critical Care Time: No Referrals: SELAM PORTER [Primary Care Provider] - Follow Up with PCP/3 days Instructions: Viral Pharyngitis (DC) Additional Instructions: Use Tylenol/ibuprofen as needed for symptomatic relief. Follow-up with primary care for reevaluation. Return to ER for worsening.
[2021-05-04 16:19] VITALS: BP 105/64; PULSE 70; O2SAT 98
== END 2021-05-04 16:26 | disposition home or self-care (01) ==
LOC: ED 14:40
DX: J02.9 Acute pharyngitis, unspecified (principal)
CPT/HCPCS: 87651; 99283

== ENCOUNTER 2022-04-11 10:12 | Emergency (ER) | payer OTHER ==
[2022-04-11] MEDS ORDERED: XYLOCAINE 1% HCL 20 ML MDV IJ ONE (10:13)
--- NOTE | 2022-04-11 10:20 | ERPHSYRPT ---
- History of Present Illness Time Seen by Provider: 04/11/22 10:20 Source: patient Exam Limitations: no limitations Physician History: This is a 26-year-old white female has recurrent pharyngitis diagnoses as well as recurrent urinary tract infections. She presents with 1 day history of sore throat, headache, fever and dizziness. It is not uncommon for her to have a headache, fever and dizziness with urinary tract infection. Patient had 1 episode of nausea vomiting yesterday after consumption of a cough drop. She has had no diarrhea. She denies chest pain. She denies shortness of breath. She denies abdominal pain Timing/Duration: yesterday Severity: mild ENT Location: throat (Moderate) Prearrival Treatment: over the counter meds (Ibuprofen) Modifying Factors: Improves With: activity Associated Symptoms: fever, dizziness, headache, sore throat Allergies/Adverse Reactions: No Known Drug Allergies Allergy (Verified 04/11/22 10:22) Home Medications: Liraglutide [Victoza 2-Heraclio] 0.6 ml SQ DAILY 05/04/21 [History] Hx Tetanus, Diphtheria Vaccination/Date Given: Yes Hx Influenza Vaccination/Date Given: Yes (fall 2019) Hx Pneumococcal Vaccination/Date Given: No Travel Risk - International Travel Have you traveled outside of the country in past 3 weeks: No - Coronavirus Screening Are you exhibiting any of the following symptoms?: Yes Symptoms: Fever, Headaches/Body Aches/Fatigue - Vaccine Status Have you recieved a Covid-19 vaccination: No - Review of Systems Constitutional: Fever Eyes: No Symptoms Ears, Nose, & Throat: Throat Pain Respiratory: No Symptoms Cardiac: No Symptoms Abdominal/Gastrointestinal: Nausea, Vomiting Genitourinary Symptoms: No Symptoms Musculoskeletal: No Symptoms Skin: No Symptoms Neurological: Dizziness, Headache Psychological: No Symptoms Endocrine: No Symptoms Hematologic/Lymphatic: No Symptoms Immunological/Allergic: No Symptoms All Other Systems: Reviewed and Negative - Past Medical History Pertinent Past Medical History: Yes Neurological History: No Pertinent History ENT History: No Pertinent History Cardiac History: No Pertinent History Respiratory History: No Pertinent History Endocrine Medical History: No Pertinent History Musculoskeletal History: No Pertinent History GI Medical History: No Pertinent History History: No Pertinent History Psycho-Social History: Depression Female Reproductive Disorders: No Pertinent History Other Medical History: . - Past Surgical History Past Surgical History: Yes Neuro Surgical History: No Pertinent History Cardiac: No Pertinent History Respiratory: No Pertinent History Gastrointestinal: No Pertinent History Genitourinary: No Pertinent History Musculoskeletal: No Pertinent History Female Surgical History: No Pertinent History Other Surgical History: ORAL SURGERY - Social History Smoking Status: Never smoker Exposure to second hand smoke: No Drug Use: none Patient Lives Alone: No - Nursing Vital Signs Nursing Vital Signs: Initial Vital Signs Temperature 100.7 F 04/11/22 10:23 Pulse Rate 77 04/11/22 10:23 Respiratory Rate 18 04/11/22 10:23 Blood Pressure 119/66 04/11/22 10:23 O2 Sat by Pulse Oximetry 97 04/11/22 10:23 Pain Scale Pain Intensity 8 - Physical Exam General Appearance: no apparent distress, alert, anxiety Eye Exam: bilateral eye: normal inspection, PERRL, EOMI Ear Exam: bilateral ear: auricle normal, canal normal, TM normal Nasal Exam: normal inspection Throat Exam: moist mucus membranes, pharynx swelling, pharynx tenderness, tonsillar exudate, tonsillar swelling Neck Exam: normal inspection, non-tender, supple, full range of motion Cardiovascular/Respiratory Exam: chest non-tender, normal breath sounds, regular rate/rhythm, heart sounds normal, no ecchymosis, no JVD, no M/R/G, no respiratory distress Abdominal Exam: non-tender Neurologic Exam: alert, oriented x 3, cooperative, personnel research scientist II-XII nml as tested, normal mood/affect, nml cerebellar function, nml station & gait, sensation nml Skin Exam: normal color, warm, dry SpO2 Interpretation: normal O2 Delivery: Room Air - Course Nursing assessment & vital signs reviewed: Yes Ordered Tests: Medication Summary Discontinued Medications Generic Name Dose Route Start Last Admin Trade Name Freq PRN Reason Stop Dose Admin Ceftriaxone Sodium 1,000 mg 04/11/22 10:34 Ceftriaxone Sodium 1000 Mg Inj Vial IM 04/11/22 10:35 STAT ONE - Progress Progress: unchanged Counseled pt/family regarding: diagnosis, need for follow-up - Departure Departure Disposition: Home Clinical Impression: Fever, Tonsillitis, Pharyngitis Condition: Stable Critical Care Time: No Referrals: SELAM PORTER [Primary Care Provider] - Follow up/PCP as directed Additional Instructions: Drink plenty of cool liquids. Take your medication as prescribed. Follow-up with your primary care physician for further evaluation and management. Prescriptions: Ondansetron ODT 4 MG [Zofran Odt 4 mg] 4 mg PO Q6H PRN PRN #10 tablet PRN Reason: Vomiting Hydrocodone/Acetaminophen [Hydrocodone-Acetamn 7.5-325/15] 10 ml PO Q8H PRN PRN #120 ml MDD 30 ml PRN Reason: Cough Cefdinir 300 mg PO BID #14 cap Prednisone 10 mg [Deltasone 10 mg] 10 mg PO TID #12 tablet
[2022-04-11 10:34] VITALS: O2SAT 97
[2022-04-11] MEDS ORDERED: Rocephin 1000 MG INJ ONE (10:46)
[2022-04-11] MEDS: Rocephin 1000 MG INJ IM ONE (10:49)
[2022-04-11 10:57] VITALS: BP 125/96; PULSE 102
== END 2022-04-11 11:02 | disposition home or self-care (01) ==
LOC: ED 10:12
DX: J03.90 Acute tonsillitis, unspecified (principal); R50.9 Fever, unspecified; R51.9 Headache, unspecified; R42 Dizziness and giddiness; Z79.891 Long term (current) use of opiate analgesic; Z79.52 Long term (current) use of systemic steroids; Z79.899 Other long term (current) drug therapy; Z28.310 Unvaccinated for COVID-19
CPT/HCPCS: 96372; 99283; J0696

== ENCOUNTER 2023-03-17 20:12 | Emergency (ER) | payer MEDICAID, OTHER ==
--- NOTE | 2023-03-17 20:18 | ERPHSYRPT ---
- History of Present Illness Time Seen by Provider: 03/17/23 20:18 Source: patient, family Exam Limitations: no limitations Physician History: pt has had aching and malaise and fever , no vomiting. no trauma. no cough but some ST. other child in contact with pt and child had flu like symp[toms which have resolved. No vag discharge or abd pain. + dysuria. Swallowing Okj in ER. Cheat clear. ht reg without M. Abd soft nontender without peritoneal signs or mass. No rash. Neuro exam normal. FUndi benign. No meningismus. Discussed risk / benefit of CBC, CMP, UA Covid, FLu, RSV, Strep swabs with pt and she wishes to proceed. These are ordered, and later results discussed. Timing/Duration: day(s) Severity: moderate Modifying Factors: Improves With: acetaminophen Associated Symptoms: malaise Allergies/Adverse Reactions: No Known Drug Allergies Allergy (Verified 03/17/23 21:18) Hx Tetanus, Diphtheria Vaccination/Date Given: Yes Hx Influenza Vaccination/Date Given: Yes (fall 2019) Hx Pneumococcal Vaccination/Date Given: No Travel Risk - Vaccine Status Have you recieved a Covid-19 vaccination: No - Review of Systems Constitutional: Fatigue, Malaise, No Fever, No Chills Eyes: No Symptoms Ears, Nose, & Throat: Throat Pain, No Painful Swallowing Respiratory: No Cough, No Dyspnea Cardiac: No Chest Pain, No Edema, No Syncope Abdominal/Gastrointestinal: No Abdominal Pain, No Nausea, No Vomiting, No Diarrhea Genitourinary Symptoms: Dysuria Musculoskeletal: No Back Pain, No Neck Pain Skin: No Rash Neurological: No Dizziness, No Focal Weakness, No Sensory Changes Psychological: No Symptoms Endocrine: No Symptoms Hematologic/Lymphatic: No Symptoms Immunological/Allergic: No Symptoms All Other Systems: Reviewed and Negative - Past Medical History Pertinent Past Medical History: Yes Neurological History: No Pertinent History ENT History: No Pertinent History Cardiac History: No Pertinent History Respiratory History: No Pertinent History Endocrine Medical History: No Pertinent History Musculoskeletal History: No Pertinent History GI Medical History: No Pertinent History History: No Pertinent History Psycho-Social History: Depression Female Reproductive Disorders: No Pertinent History Other Medical History: . - Past Surgical History Past Surgical History: Yes Neuro Surgical History: No Pertinent History Cardiac: No Pertinent History Respiratory: No Pertinent History Gastrointestinal: No Pertinent History Genitourinary: No Pertinent History Musculoskeletal: No Pertinent History Female Surgical History: No Pertinent History Other Surgical History: ORAL SURGERY - Social History Smoking Status: Never smoker Exposure to second hand smoke: No Drug Use: none Patient Lives Alone: No - Nursing Vital Signs Nursing Vital Signs: Initial Vital Signs Temperature 101.5 F 03/17/23 21:20 Pulse Rate 114 H 03/17/23 21:20 Respiratory Rate 18 03/17/23 21:20 Blood Pressure 124/62 03/17/23 21:20 O2 Sat by Pulse Oximetry 97 03/17/23 21:20 Pain Scale Pain Intensity 5 - Physical Exam General Appearance: no apparent distress, alert Eye Exam: PERRL/EOMI, eyes nml inspection Ears, Nose, Throat Exam: normal ENT inspection, TMs normal, moist mucous membranes, pharyngeal erythema Neck Exam: normal inspection, non-tender, supple, full range of motion, No meningismus Respiratory Exam: normal breath sounds, lungs clear, No respiratory distress Cardiovascular Exam: regular rate/rhythm, normal heart sounds, normal peripheral pulses Gastrointestinal/Abdomen Exam: soft, normal bowel sounds, No tenderness, No distention, No mass, No guarding, No pulsatile mass, No rebound Pelvic Exam: deferred Rectal Exam: deferred Back Exam: normal inspection, normal range of motion, No CVA tenderness, No vertebral tenderness Extremity Exam: normal inspection, normal range of motion, pelvis stable Neurologic Exam: alert, oriented x 3, cooperative, normal mood/affect, nml cerebellar function, nml station & gait, sensation nml, No motor deficits Skin Exam: normal color, warm, dry, No rash Lymphatic Exam: No adenopathy - Course Nursing assessment & vital signs reviewed: Yes Ordered Tests: Active Orders 24 hr Category Date Time Status CBC W DIFF Stat Lab 03/17/23 20:55 Completed CMP Stat Lab 03/17/23 20:55 Completed CULTURE,URINE Stat Lab 03/17/23 23:36 Received MONO SCREEN Stat Lab 03/17/23 20:55 Completed UA W/RFX UR CULTURE Stat Lab 03/17/23 23:36 Completed Medication Summary Discontinued Medications Generic Name Dose Route Start Last Admin Trade Name Freq PRN Reason Stop Dose Admin Acetaminophen 1,000 mg 03/17/23 21:55 03/17/23 21:58 Acetaminophen 500 Mg Tablet PO 03/17/23 21:56 1,000 mg STAT STA Administration Acetaminophen Confirm 03/17/23 21:57 Acetaminophen 500 Mg Tablet Administered 03/17/23 21:58 Dose 1,000 mg .ROUTE .LOYAL3-MED ONE Lab/Rad Data: Laboratory Result Diagrams 03/17/23 20:55 03/17/23 20:55 Laboratory Results 03/17/23 03/17/23 03/17/23 Range/Units 23:36 20:55 20:55 WBC (4.0-10.5) x10^3/uL RBC (4.1-5.4) x10^6/uL Hgb (12.0-16.0) g/dL Hct (35-47) % MCV (78-100) fL MCH (26-32) pg MCHC (32-36) g/dL RDW (11.5-14.0) % Plt Count (150-450) x10^3/uL MPV (7.5-11.0) fL Gran % (36.0-66.0) % Immature Gran % (Auto) (0.00-0.4) % Nucleat RBC Rel Count (0.00-0.1) % Eos # (Auto) (0-0.5) x10^3/uL Immature Gran # (Auto) (0.00-0.03) x10^3u/L Absolute Lymphs (auto) (1.0-4.6) x10^3/uL Absolute Monos (auto) (0.0-1.3) x10^3/uL Absolute Nucleated RBC (0.00-0.01) x10^3u/L Lymphocytes % (24.0-44.0) % Monocytes % (0.0-12.0) % Eosinophils % (0.00-5.0) % Basophils % (0.0-0.4) % Absolute Granulocytes (1.4-6.9) x10^3/uL Basophils # (0-0.4) x10^3/uL Sodium (137-145) mmol/L Potassium (3.5-5.1) mmol/L Chloride (98-107) mmol/L Carbon Dioxide (22-30) mmol/L Anion Gap (5-15) MEQ/L BUN (7-17) mg/dL Creatinine (0.52-1.04) mg/dL Estimated GFR ML/MIN Glucose (74-106) mg/dL Calcium (8.4-10.2) mg/dL Total Bilirubin (0.2-1.3) mg/dL AST (14-36) U/L ALT (0-35) U/L Alkaline Phosphatase (38-126) U/L Serum Total Protein (6.3-8.2) g/dL Albumin (3.5-5.0) g/dL Urine Color Yellow (Yellow) Urine Appearance Cloudy A (Clear) Urine pH 5.5 (4.6-8.0) Ur Specific [place] 1.025 (1.005-1.030) Urine Protein Negative (Negative) Urine Glucose (UA) Negative (Negative) mg/dL Urine Ketones Negative (Negative) Urine Blood Negative (Negative) Urine Nitrite Negative (Negative) Urine Bilirubin Negative (Negative) Urine Urobilinogen 0.2 (0.2) mg/dL Ur Leukocyte Esterase Moderate A (Negative) U Hyaline Cast (Auto) NONE SEEN (0-2) /LPF Urine Microscopic RBC 0-2 (0-5) /HPF Urine Microscopic WBC 51-100 A (0-5) /HPF Ur Epithelial Cells Moderate A (None Seen) /HPF Urine Bacteria Few A (None Seen) /HPF Urine Culture Reflexed YES (NO) Monoscreen NEGATIVE (NEGATIVE) Influenza Type A Ag NEGATIVE (NEGATIVE) Influenza Type B Ag NEGATIVE (NEGATIVE) RSV (PCR) NEGATIVE (NEGATIVE) SARS-CoV-2 (PCR) NEGATIVE (NEGATIVE) Group A Strep Antibody NOT DETECTED (NEGATIVE) 03/17/23 03/17/23 Range/Units 20:55 20:55 WBC 4.6 (4.0-10.5) x10^3/uL RBC 4.40 (4.1-5.4) x10^6/uL Hgb 13.4 (12.0-16.0) g/dL Hct 40.3 (35-47) % MCV 91.6 (78-100) fL MCH 30.5 (26-32) pg MCHC 33.3 (32-36) g/dL RDW 12.0 (11.5-14.0) % Plt Count 205 (150-450) x10^3/uL MPV 9.0 (7.5-11.0) fL Gran % 67.5 H (36.0-66.0) % Immature Gran % (Auto) 0.4 (0.00-0.4) % Nucleat RBC Rel Count 0.0 (0.00-0.1) % Eos # (Auto) 0.02 (0-0.5) x10^3/uL Immature Gran # (Auto) 0.02 (0.00-0.03) x10^3u/L Absolute Lymphs (auto) 0.88 L (1.0-4.6) x10^3/uL Absolute Monos (auto) 0.56 (0.0-1.3) x10^3/uL Absolute Nucleated RBC 0.00 (0.00-0.01) x10^3u/L Lymphocytes % 19.0 L (24.0-44.0) % Monocytes % 12.1 H (0.0-12.0) % Eosinophils % 0.4 (0.00-5.0) % Basophils % 0.6 (0.0-0.4) % Absolute Granulocytes 3.13 (1.4-6.9) x10^3/uL Basophils # 0.03 (0-0.4) x10^3/uL Sodium 139 (137-145) mmol/L Potassium 4.0 (3.5-5.1) mmol/L Chloride 103 (98-107) mmol/L Carbon Dioxide 26 (22-30) mmol/L Anion Gap 13.2 (5-15) MEQ/L BUN 16 (7-17) mg/dL Creatinine 0.79 (0.52-1.04) mg/dL Estimated GFR > 60.0 ML/MIN Glucose 107 H (74-106) mg/dL Calcium 9.0 (8.4-10.2) mg/dL Total Bilirubin 0.40 (0.2-1.3) mg/dL AST 25 (14-36) U/L ALT 21 (0-35) U/L Alkaline Phosphatase 102 (38-126) U/L Serum Total Protein 7.5 (6.3-8.2) g/dL Albumin 4.4 (3.5-5.0) g/dL Urine Color (Yellow) Urine Appearance (Clear) Urine pH (4.6-8.0) Ur Specific [place] (1.005-1.030) Urine Protein (Negative) Urine Glucose (UA) (Negative) mg/dL Urine Ketones (Negative) Urine Blood (Negative) Urine Nitrite (Negative) Urine Bilirubin (Negative) Urine Urobilinogen (0.2) mg/dL Ur Leukocyte Esterase (Negative) U Hyaline Cast (Auto) (0-2) /LPF Urine Microscopic RBC (0-5) /HPF Urine Microscopic WBC (0-5) /HPF Ur Epithelial Cells (None Seen) /HPF Urine Bacteria (None Seen) /HPF Urine Culture Reflexed (NO) Monoscreen (NEGATIVE) Influenza Type A Ag (NEGATIVE) Influenza Type B Ag (NEGATIVE) RSV (PCR) (NEGATIVE) SARS-CoV-2 (PCR) (NEGATIVE) Group A Strep Antibody (NEGATIVE) - Progress Progress: improved, re-examined Progress Note: 03/18/23 00:19 discussed findings with pt and that although we found UTI, that may not be the cause for her symptoms and that undetected pathology could still be evolving. She feels better and wishes to f/u as outpt with PMD and try Tx for UTI with AB, rather than further w/u in ER or obs, and she has the capacity to make this choice. 03/18/23 00:21 Counseled pt/family regarding: lab results, diagnosis, need for follow-up Medical Desision Making - Discussion of managment Reviewed:: Test results, Need for additional workup Agreed on:: Treatment plan, need for follow-up - Diagnostic Testing Diagnostic test were ordered, analyzed, and reviewed by me: Yes - Risk of complications The pt has a mod risk of morbidity or mortality based on: Need for prescription drug management - Departure Departure Disposition: Home Clinical Impression: UTI (urinary tract infection), Fever, Flu-like symptoms Condition: Good Critical Care Time: No Instructions: Sore Throat, Adult (DC), Urinary Tract Infection, Adult ED, Viral Pharyngitis, Fever of Unknown Origin Additional Instructions: although the urinary tract infection may explain your symptoms , there still could be other causes developing that we have not yet detected. It is good to followup with your DrRandal and the urine should be rechecked after treatment completed to confirm resolution, and see your Dr. or return meantime if not improving or any symptoms of concern develop. Prescriptions: Cephalexin Mh 500 mg [Keflex 500 mg] 500 mg PO TID 7 Days #21 cap
[2023-03-17 21:03] LABS: Absolute Neutrophil Ct (ANC) 3.13 x10^3/uL (1.4-6.9); BASOPHIL % 0.6 % (0.0-0.4); Basophil (Absolute #) 0.03 x10^3/uL (0-0.4); Eosinophil % 0.4 % (0.00-5.0); Eosinophil (Absolute #) 0.02 x10^3/uL (0-0.5); Hematocrit 40.3 % (35-47); Hemoglobin 13.4 g/dL (12.0-16.0); IMMATURE GRAN # 0.02 x10^3u/L (0.00-0.03); IMMATURE GRAN % 0.4 % (0.00-0.4); Lymphocyte (Absolute #) 0.88 x10^3/uL (1.0-4.6); Mean Cell Volume 91.6 fL (78-100); Mean Corpuscular Hemoglobin 30.5 pg (26-32); Mean Corpuscular Hgb Concent. 33.3 g/dL (32-36); Monocyte (Absolute #) 0.56 x10^3/uL (0.0-1.3); Monocytes % 12.1 % (0.0-12.0); Neutrophil % 67.5 % (36.0-66.0); Platelet Count 205 x10^3/uL (150-450); White Blood Count 4.6 x10^3/uL (4.0-10.5)
[2023-03-17 21:18] LABS: ALBUMIN 4.4 g/dL (3.5-5.0); ALKALINE PHOSPHATASE 102 U/L (38-126); ANION GAP 13.2 MEQ/L (5-15); BLOOD UREA NITROGEN 16 mg/dL (7-17); CHLORIDE 103 mmol/L (98-107); Carbon Dioxide 26 mmol/L (22-30); Creatinine 1 0.79 mg/dL (0.52-1.04); EST GLOMERULAR FILTRATION RATE > 60.0 ML/MIN; Glucose 107 mg/dL (74-106); SGOT/AST 25 U/L (14-36); SGPT/ALT 21 U/L (0-35); SODIUM 139 mmol/L (137-145); Total Protein 7.5 g/dL (6.3-8.2)
[2023-03-17 21:24] VITALS: BP 124/62
[2023-03-17 21:31] LABS: Group A Strep NOT DETECTED (NEGATIVE)
[2023-03-17 21:42] LABS: INFLUENZA A NEGATIVE (NEGATIVE); INFLUENZA B NEGATIVE (NEGATIVE); RESPIRATORY SYNCTIAL VIRUS NEGATIVE (NEGATIVE); SARS-CoV-2 Xpert Express NEGATIVE (NEGATIVE)
[2023-03-17] MEDS ORDERED: TYLENOL EXTRA STRENGTH 500 MG PO STA (21:55)
[2023-03-17] MEDS ORDERED: TYLENOL EXTRA STRENGTH 500 MG ONE (21:57)
[2023-03-17 23:46] LABS: ADD URINE CULTURE? YES (NO); Appearance Cloudy (Clear); Bacteria Few /HPF (None Seen); Bilirubin Negative (Negative); Blood Negative (Negative); Epithelial Cells Moderate /HPF (None Seen); Glucose, Urine Negative (Negative); Hyaline Casts NONE SEEN /LPF (0-2); Ketones Negative (Negative); Leukocyte Esterase Moderate (Negative); Nitrite Negative (Negative); Ph 5.5 (4.6-8.0); Protein,Urine Dip Negative (Negative); RBC 0-2 /HPF (0-5); Specific Gravity 1.025 (1.005-1.030); Urobilinogen 0.2 mg/dL (0.2); WBC 51-100 /HPF (0-5)
[2023-03-17 23:59] VITALS: O2SAT 96
[2023-03-18] MEDS ORDERED: KEFLEX 500 MG PO ONE (00:28)
[2023-03-18] MEDS ORDERED: KEFLEX 500 MG ONE (00:36)
[2023-03-18 00:39] VITALS: PULSE 99; RESP 17; TEMP 99.2
== END 2023-03-18 00:53 | disposition home or self-care (01) ==
LOC: ED 20:12
DX: N39.0 Urinary tract infection, site not specified (principal); R50.9 Fever, unspecified; M79.10 Myalgia, unspecified site; R53.81 Other malaise; J02.9 Acute pharyngitis, unspecified; R30.0 Dysuria; Z28.310 Unvaccinated for COVID-19
CPT/HCPCS: 0241U; 36415; 80053; 81001; 85025; 86308; 87086; 87651; 99283; A9270-GY